=== PATIENT | male | born 1930 | race Caucasian/White ===

== ENCOUNTER → 2016-12-29 | Outpatient (CLI) | payer MEDICARE ==
[2016-12-29 13:34] LABS: Blood Urea Nitrogen 26 mg/dL (9-20); Non-African American GFR(MDRD) >60 (>60 ml/min/1.73 sqM)
--- NOTE | 2016-12-29 14:56 | CT ---
EXAMINATION TYPE: CT brain wo/w con, CT orbits wo/w con DATE OF EXAM: 12/29/2016 2:36 PM COMPARISON: CT brain June 03, 2016. HISTORY: Suspected mass of right eye CT DLP: 2113.47 (accession [id number]), 474.78 (accession [id number]) mGycm Automated exposure control for dose reduction was used. CONTRAST: CT scan of the head and orbits are performed without and with IV Contrast, patient injected with 100 mL of Omnipaque 300. FINDINGS: Noncontrast images show no acute intracranial hemorrhage or midline shift. There is ventricular and s ulcal prominence consistent with diffuse cerebral atrophy. Some low-attenuation in the periventricula r white matter is redemonstrated. Postcontrast images show no suspicious enhancing intraparenchymal m ass. Pituitary gland appears unremarkable in the S[place] tur[place] on CT. No suspicious suprasellar masses are seen. Visualized paranasal sinuses are clear. The globes are intact bilaterally. Both lenses are thinned . Intraconal fat is preserved. Rectus muscles are symmetric and felt within normal limits. There is no suspicious solid or cystic mass or enhancing fluid collection identified. Optic chiasm appears not ef faced. IMPRESSION: No suspicious finding is seen to account for patient's symptoms.
== END | disposition home or self-care (01) ==
LOC: RADCTMAIN 12:44
PROVIDERS: ATTEND Ophthalmology
DX: H57.8 Other specified disorders of eye and adnexa (principal)
CPT/HCPCS: 82565; 84520; 70470; 70482; 36415; Q9967

== ENCOUNTER → 2017-01-25 | Outpatient (CLI) | payer MEDICARE ==
[2017-01-25 17:57] LABS: CH 29.8; CHCM 33.5; HCT 41.9 % (39.0-53.0); HDW 2.56; HGB 13.9 gm/dL (13.0-17.5); MCH 29.7 pg (25.0-35.0); MCHC 33.3 g/dL (31.0-37.0); MCV 89.3 fL (80.0-100.0); Mean Platelet Volume 7.2; RBC 4.69 m/uL (4.30-5.90); RDW 13.4 % (11.5-15.5)
[2017-01-25 18:49] LABS: Erythrocyte Sedimentation Rate 36 mm/hr (0-15)
== END | disposition home or self-care (01) ==
LOC: LABWHC1 17:18
PROVIDERS: ATTEND Ophthalmology
DX: H47.20 Unspecified optic atrophy (principal)
CPT/HCPCS: 36415; 85027; 85652; 86140

== ENCOUNTER 2017-03-19 16:32 | Inpatient (IN) | payer MEDICARE ==
--- NOTE | 2017-03-19 17:23 | ED ---
General Adult HPI - General Chief complaint: Neuro Symptoms/Deficit Stated complaint: Fall/Weakness/Dizziness Time Seen by Provider: 03/19/17 16:43 Source: patient Mode of arrival: wheelchair Limitations: no limitations - History of Present Illness Initial comments: She is an 86-year-old male who lives independently. He is brought to the emergency department today by his son for evaluation of generalized weakness. Son reports that he has noticed over the past week his father appears to have weakness in his left leg, he states that sometimes it looks like his father wails his ankle and is unable to walk on the leg. He reports that he feels his father does not have good control over his legs. He has had symptoms similar to this when he has had a urinary tract infection the past. The patient's primary care provider who evaluated the patient and was concerned he may have right sided weakness, they performed a urinalysis which revealed no acute urinary infection and therefore decided to send him to the emergency department for further evaluation of this weakness. Patient reports he feels generally weak and run down, he describes himself as feeling "is weak as a kitten." - Related Data Home Medications Medication Instructions Recorded Confirmed Aspirin [Adult Low Dose Aspirin EC] 81 mg PO HS 08/20/15 03/19/17 Docusate [Colace] 100 mg PO TID PRN 08/20/15 03/19/17 Glimepiride [Amaryl] 2 mg PO BID 08/20/15 03/19/17 Imipramine Pamoate [Tofranil Pm] 75 mg PO HS 08/20/15 03/19/17 Metoprolol Tartrate [Lopressor] 100 mg PO BID 08/20/15 03/19/17 Vits A,C,E/Lutein/Minerals 1 tab PO DAILY 08/20/15 03/19/17 [Ocuvite with Lutein Tablet] metFORMIN HCL [Glucophage] 500 mg PO BID 08/20/15 03/19/17 Cholecalciferol (Vitamin D3) 2,000 unit PO DAILY 03/19/17 03/19/17 [Vitamin D3] Empagliflozin [Jardiance] 10 mg PO DAILY 03/19/17 03/19/17 Furosemide [Lasix] 20 mg PO DAILY 03/19/17 03/19/17 Multivitamins, Thera [Multivitamin 1 tab PO DAILY 03/19/17 03/19/17 (formulary)] Ramipril [Altace] 5 mg PO BID 03/19/17 03/19/17 Allergies Allergy/AdvReac Type Severity Reaction Status Date / Time No Known Allergies Allergy Verified 03/19/17 16:33 Review of Systems ROS Statement: Those systems with pertinent positive or pertinent negative responses have been documented in the HPI. ROS Other: All systems not noted in ROS Statement are negative. Constitutional: Reports: weakness. Denies: fever, chills Eyes: Denies: vision change ENT: Reports: other (Chronic hearing loss) Respiratory: Denies: cough, dyspnea, wheezes Cardiovascular: Denies: chest pain, dyspnea on exertion Endocrine: Reports: fatigue Gastrointestinal: Denies: abdominal pain, nausea, vomiting Genitourinary: Denies: dysuria Musculoskeletal: Denies: back pain Neurological: Reports: weakness (generalized). Denies: headache Psychiatric: Reports: depression (Reports he is feeling old) Hematological/Lymphatic: Reports: easy bruising. Denies: easy bleeding Past Medical History Past Medical History: Cancer, Diabetes Mellitus, GERD/Reflux, Hyperlipidemia, Skin Disorder Additional Past Medical History / Comment(s): see Dr Brandt H&P, constipation, hx skin cancer, inner ear problem-occ lighthead History of Any Multi-Drug Resistant Organisms: None Reported Past Surgical History: Heart Catheterization, Pacemaker, Prostate Surgery Additional Past Surgical History / Comment(s): surgery for detached retina-rt eye, Past Anesthesia/Blood Transfusion Reactions: Motion Sickness Type of Cardiac Device: Permanent Pacemaker Device Placement Date:: about 2007 Past Psychological History: No Psychological Hx Reported Smoking Status: Former smoker Past Alcohol Use History: None Reported Past Drug Use History: None Reported - Past Family History Sister(s) Family Medical History: Cancer General Exam Limitations: no limitations General appearance: alert, in no apparent distress Head exam: Present: atraumatic, normocephalic Eye exam: Present: PERRL ENT exam: Present: mucous membranes moist Neck exam: Absent: meningismus Respiratory exam: Present: normal lung sounds bilaterally. Absent: respiratory distress Cardiovascular Exam: Present: regular rate GI/Abdominal exam: Present: soft, normal bowel sounds. Absent: distended, tenderness, guarding, rebound Rectal exam: Present: deferred exam: Present: normal inspection Extremities exam: Absent: pedal edema, calf tenderness Back exam: Present: normal inspection Neurological exam: Present: alert, oriented X3, abnormal gait (Patient with generalized weakness, no lateralizing weakness, requires assistance in walking) Psychiatric exam: Present: normal affect Skin exam: Present: warm, dry Course Vital Signs 03/19/17 03/19/17 16:33 18:17 Temperature 96.4 F L 98.8 F Pulse Rate 78 73 Respiratory 16 18 Rate Blood Pressure 148/71 157/75 O2 Sat by Pulse 99 94 L Oximetry - Reevaluation(s) Reevaluation #1: Patient reevaluated, his family has brought him a meal from [employer] and he is sitting up in bed comfortably and eating 03/19/17 Reevaluation #2: Results and plan for admission were discussed with the patient and family 03/19/17 20:10 Medical Decision Making - Medical Decision Making Patient was seen and evaluated history was obtained from the patient, as well as his son at bedside Labs and CT imaging were ordered Labs reveal mild elevation of blood glucose at 240 and mild hyponatremia with a sodium level of 127 the corrected sodium is only 129 IV fluids were ordered Results were discussed with the patient as well as his family at bedside, family is concerned that the patient has missed his dinner, they would like to bring him in a meal here and advised him that he can at this time. CT head with no acute findings Patient care was discussed with Bird, the mid-level provider for the [facility] who accepts the admission for hyponatremia and generalized weakness Admission orders were placed - Lab Data Result diagrams: 03/19/17 17:30 03/19/17 17:30 Lab Results 03/19/17 03/19/17 03/19/17 Range/Units 17:30 17:30 17:30 WBC 10.6 (3.8-10.6) k/uL RBC 4.45 (4.30-5.90) m/uL Hgb 13.1 (13.0-17.5) gm/dL Hct 37.7 L (39.0-53.0) % MCV 84.6 (80.0-100.0) fL MCH 29.4 (25.0-35.0) pg MCHC 34.7 (31.0-37.0) g/dL RDW 13.6 (11.5-15.5) % Plt Count 394 (150-450) k/uL Neutrophils % 75 % Lymphocytes % 15 % Monocytes % 7 % Eosinophils % 1 % Basophils % 0 % Neutrophils # 7.9 H (1.3-7.7) k/uL Lymphocytes # 1.6 (1.0-4.8) k/uL Monocytes # 0.7 (0-1.0) k/uL Eosinophils # 0.1 (0-0.7) k/uL Basophils # 0.0 (0-0.2) k/uL PT (9.0-12.0) sec INR (<1.2) APTT (22.0-30.0) sec Sodium 127 L (137-145) mmol/L Potassium 4.9 (3.5-5.1) mmol/L Chloride 93 L (98-107) mmol/L Carbon Dioxide 25 (22-30) mmol/L Anion Gap 9 mmol/L BUN 32 H (9-20) mg/dL Creatinine 0.90 (0.66-1.25) mg/dL Est GFR (MDRD) Af Amer >60 (>60 ml/min/1.73 sqM) Est GFR (MDRD) Non-Af >60 (>60 ml/min/1.73 sqM) Glucose 240 H (74-99) mg/dL Calcium 9.4 (8.4-10.2) mg/dL Total Bilirubin 0.3 (0.2-1.3) mg/dL AST 25 (17-59) U/L ALT 31 (21-72) U/L Alkaline Phosphatase 119 (38-126) U/L Troponin I (0.000-0.034) ng/mL NT-Pro-B Natriuret Pep 1350 pg/mL Total Protein 6.1 L (6.3-8.2) g/dL Albumin 3.2 L (3.5-5.0) g/dL Urine Color Urine Appearance (Clear) Urine pH (5.0-8.0) Ur Specific [place] (1.001-1.035) Urine Protein (Negative) Urine Glucose (UA) (Negative) Urine Ketones (Negative) Urine Blood (Negative) Urine Nitrite (Negative) Urine Bilirubin (Negative) Urine Urobilinogen (<2.0) mg/dL Ur Leukocyte Esterase (Negative) 07/03/19/17 03/19/17 Range/Units 17:30 17:30 17:55 WBC (3.8-10.6) k/uL RBC (4.30-5.90) m/uL Hgb (13.0-17.5) gm/dL Hct (39.0-53.0) % MCV (80.0-100.0) fL MCH (25.0-35.0) pg MCHC (31.0-37.0) g/dL RDW (11.5-15.5) % Plt Count (150-450) k/uL Neutrophils % % Lymphocytes % % Monocytes % % Eosinophils % % Basophils % % Neutrophils # (1.3-7.7) k/uL Lymphocytes # (1.0-4.8) k/uL Monocytes # (0-1.0) k/uL Eosinophils # (0-0.7) k/uL Basophils # (0-0.2) k/uL PT 10.3 (9.0-12.0) sec INR 1.0 (<1.2) APTT 23.2 (22.0-30.0) sec Sodium (137-145) mmol/L Potassium (3.5-5.1) mmol/L Chloride (98-107) mmol/L Carbon Dioxide (22-30) mmol/L Anion Gap mmol/L BUN (9-20) mg/dL Creatinine (0.66-1.25) mg/dL Est GFR (MDRD) Af Amer (>60 ml/min/1.73 sqM) Est GFR (MDRD) Non-Af (>60 ml/min/1.73 sqM) Glucose (74-99) mg/dL Calcium (8.4-10.2) mg/dL Total Bilirubin (0.2-1.3) mg/dL AST (17-59) U/L ALT (21-72) U/L Alkaline Phosphatase (38-126) U/L Troponin I <0.012 (0.000-0.034) ng/mL NT-Pro-B Natriuret Pep pg/mL Total Protein (6.3-8.2) g/dL Albumin (3.5-5.0) g/dL Urine Color Light Yellow Urine Appearance Clear (Clear) Urine pH 6.5 (5.0-8.0) Ur Specific [place] 1.016 (1.001-1.035) Urine Protein Negative (Negative) Urine Glucose (UA) 4+ H (Negative) Urine Ketones Negative (Negative) Urine Blood Negative (Negative) Urine Nitrite Negative (Negative) Urine Bilirubin Negative (Negative) Urine Urobilinogen <2.0 (<2.0) mg/dL Ur Leukocyte Esterase Negative (Negative) Disposition Clinical Impression: Hyponatremia Disposition: ADMITTED IP TO THIS HOSP Condition: Good Referrals: Sung Ludwig MD [Primary Care Provider] - 1-2 days
[2017-03-19 17:42] LABS: Basophils % (A) 0 %; CH 29.1; CHCM 34.5; Eosinophils # (A) 0.1 k/uL (0-0.7); Eosinophils % (A) 1 %; HCT 37.7 % (39.0-53.0); HDW 2.46; HGB 13.1 gm/dL (13.0-17.5); Luc # (Auto) 0.31; Luc % (Auto) 3; Lymphocytes # (A) 1.6 k/uL (1.0-4.8); Lymphocytes % (A) 15 %; MCH 29.4 pg (25.0-35.0); MCHC 34.7 g/dL (31.0-37.0); MCV 84.6 fL (80.0-100.0); Mean Platelet Volume 7.2; Monocytes # (A) 0.7 k/uL (0-1.0); Monocytes % (A) 7 %; Neutrophils # (A) 7.9 k/uL (1.3-7.7); Neutrophils % (A) 75 %; RBC 4.45 m/uL (4.30-5.90); RDW 13.6 % (11.5-15.5); WBC 10.6 k/uL (3.8-10.6); WBC (Perox) 10.17
[2017-03-19 17:51] LABS: Partial Thromboplastin Time 23.2 sec (22.0-30.0); Prothrombin Time 10.3 sec (9.0-12.0)
[2017-03-19 18:03] LABS: Appearance,Urine Clear (Clear); Bilirubin,Urine Negative (Negative); Glucose,Urine (UA) 4+ (Negative); Ketones,Urine Negative (Negative); Leukocyte Esterase,Urine Negative (Negative); Nitrite,Urine Negative (Negative); PH, Urine 6.5 (5.0-8.0); Protein,Urine Negative (Negative); Specific Gravity,Urine 1.016 (1.001-1.035); UA Billing (MACRO vs. MICRO) CHEM; Urobilinogen,Urine <2.0 mg/dL (<2.0)
[2017-03-19 18:11] LABS: AST 25 U/L (17-59); Anion Gap 9 mmol/L; Blood Urea Nitrogen 32 mg/dL (9-20); Calcium 9.4 mg/dL (8.4-10.2); Carbon Dioxide 25 mmol/L (22-30); Chloride 93 mmol/L (98-107); Glucose 240 mg/dL (74-99); Non-African American GFR(MDRD) >60 (>60 ml/min/1.73 sqM); Potassium 4.9 mmol/L (3.5-5.1); Sodium 127 mmol/L (137-145); Total Bilirubin 0.3 mg/dL (0.2-1.3); Total Protein 6.1 g/dL (6.3-8.2)
[2017-03-19 18:12] LABS: ALT 31 U/L (21-72); Alkaline Phosphatase 119 U/L (38-126)
--- NOTE | 2017-03-19 19:44 | CT ---
EXAMINATION TYPE: CT brain wo con DATE OF EXAM: 03/19/2017 COMPARISON: 12/29/2016 HISTORY: Patient complains of headache, syncope, dizziness, and weakness. CT DLP: 1079 mGycm Automated exposure control for dose reduction was used. FINDINGS: There is no skull fracture or hemorrhage. No mass or mass effect. No definite new attenuation defect. The paranasal sinuses are clear. The mastoid sinuses and middle ear cavities are also clear. IMPRESSION: NO ACUTE PROCESS.
[2017-03-19] MEDS ORDERED: NALOXONE 0.4 MG/ML 1 ML VIAL IV PRN (20:11)
[2017-03-19] MEDS: SODIUM CHLORIDE 0.9% 1,000 ML IV SCH (20:42)
[2017-03-19 23:09] VITALS: BMI 19.3
[2017-03-20 03:14] LABS: Glucose,Whole Blood 184 mg/dL (75-99)
[2017-03-20] MEDS: SODIUM CHLORIDE 0.9% 1,000 ML IV SCH ×2 (05:44→15:58)
[2017-03-20 07:50] LABS: Glucose,Whole Blood 134 mg/dL (75-99)
[2017-03-20] MEDS ORDERED: DOCUSATE 100 MG CAP PO PRN (12:09)
[2017-03-20 12:15] LABS: Glucose,Whole Blood 307 mg/dL (75-99)
[2017-03-20] MEDS ORDERED: INSULIN LISPRO (humaLOG) 300 UNIT/3 ML VIAL SQ ONE (12:47)
[2017-03-20] MEDS: LISINOPRIL 20 MG TAB PO SCH ×2 (13:05→21:53)
[2017-03-20] MEDS: METOPROLOL TARTRATE 50 MG TAB PO SCH ×2 (13:05→21:54)
[2017-03-20] MEDS: CHOLECALCIFEROL 1,000 UNIT TAB PO SCH (15:58)
[2017-03-20] MEDS: MULTIVITAMINS, THERA 1 EACH TAB PO SCH (15:58)
[2017-03-20] MEDS: VIT A,C & E-LUTEIN-MINERALS 1 EACH TAB PO SCH (15:58)
[2017-03-20] MEDS: metFORMIN 500 MG TAB PO SCH (16:56)
[2017-03-20 17:53] LABS: Glucose,Whole Blood 143 mg/dL (75-99)
[2017-03-20 20:41] LABS: Glucose,Whole Blood 248 mg/dL (75-99)
[2017-03-20 20:58] LABS: CH 28.8; CHCM 32.5; HCT 40.9 % (39.0-53.0); HGB 13.6 gm/dL (13.0-17.5); MCH 29.6 pg (25.0-35.0); MCHC 33.3 g/dL (31.0-37.0); MCV 88.9 fL (80.0-100.0); Mean Platelet Volume 7.1; RDW 13.7 % (11.5-15.5); WBC 13.2 k/uL (3.8-10.6)
[2017-03-20] MEDS ORDERED: LISINOPRIL 20 MG TAB PO SCH (21:00)
[2017-03-20] MEDS ORDERED: METOPROLOL TARTRATE 50 MG TAB PO SCH (21:00)
[2017-03-20 21:33] LABS: Anion Gap 9 mmol/L; Blood Urea Nitrogen 21 mg/dL (9-20); Calcium 8.7 mg/dL (8.4-10.2); Carbon Dioxide 23 mmol/L (22-30); Chloride 95 mmol/L (98-107); Glucose 213 mg/dL (74-99); Non-African American GFR(MDRD) >60 (>60 ml/min/1.73 sqM); Potassium 4.7 mmol/L (3.5-5.1); Sodium 127 mmol/L (137-145)
[2017-03-20] MEDS: IMIPRAMINE 25 MG TAB PO SCH (21:53)
[2017-03-20] MEDS: GLIMEPIRIDE 2 MG TAB PO SCH (21:53)
[2017-03-20] MEDS: ASPIRIN 81 MG CHEW PO SCH (21:53)
[2017-03-21] MEDS: SODIUM CHLORIDE 0.9% 1,000 ML IV SCH ×2 (03:07→12:23)
[2017-03-21 07:54] LABS: Glucose,Whole Blood 105 mg/dL (75-99)
[2017-03-21] MEDS: JARDIANCE 10 MG PO SCH (08:13)
[2017-03-21] MEDS: LISINOPRIL 20 MG TAB PO SCH ×2 (08:13→20:18)
[2017-03-21] MEDS: METOPROLOL TARTRATE 50 MG TAB PO SCH ×2 (08:13→20:17)
[2017-03-21] MEDS: metFORMIN 500 MG TAB PO SCH ×2 (08:14→17:30)
[2017-03-21] MEDS: GLIMEPIRIDE 2 MG TAB PO SCH ×2 (08:14→20:17)
[2017-03-21] MEDS ORDERED: NON-FORMULARY DRUG (Empagliflozin [Jardiance] 10 MG) PO SCH (09:00)
[2017-03-21 09:52] LABS: Anion Gap 7 mmol/L; Blood Urea Nitrogen 16 mg/dL (9-20); Calcium 8.2 mg/dL (8.4-10.2); Carbon Dioxide 25 mmol/L (22-30); Chloride 95 mmol/L (98-107); Glucose 182 mg/dL (74-99); Non-African American GFR(MDRD) >60 (>60 ml/min/1.73 sqM); Potassium 3.7 mmol/L (3.5-5.1); Sodium 127 mmol/L (137-145)
[2017-03-21 10:10] LABS: Basophils % (A) 0 %; CHCM 33.6; Eosinophils # (A) 0.1 k/uL (0-0.7); Eosinophils % (A) 1 %; HCT 39.7 % (39.0-53.0); HDW 2.52; HGB 13.3 gm/dL (13.0-17.5); Luc # (Auto) 0.28; Luc % (Auto) 3; Lymphocytes # (A) 1.4 k/uL (1.0-4.8); Lymphocytes % (A) 13 %; MCH 29.2 pg (25.0-35.0); MCHC 33.6 g/dL (31.0-37.0); MCV 86.8 fL (80.0-100.0); Mean Platelet Volume 7.3; Monocytes # (A) 0.7 k/uL (0-1.0); Monocytes % (A) 7 %; Neutrophils # (A) 8.2 k/uL (1.3-7.7); Neutrophils % (A) 76 %; RBC 4.57 m/uL (4.30-5.90); RDW 13.6 % (11.5-15.5); WBC 10.8 k/uL (3.8-10.6); WBC (Perox) 11.14
[2017-03-21] MEDS ORDERED: MULTIVITAMINS, THERA 1 EACH TAB PO SCH (12:00)
[2017-03-21] MEDS ORDERED: VIT A,C & E-LUTEIN-MINERALS 1 EACH TAB PO SCH (12:00)
[2017-03-21] MEDS ORDERED: CHOLECALCIFEROL 1,000 UNIT TAB PO SCH (12:00)
[2017-03-21 12:11] LABS: Glucose,Whole Blood 254 mg/dL (75-99)
[2017-03-21] MEDS: MULTIVITAMINS, THERA 1 EACH TAB PO SCH (12:23)
[2017-03-21] MEDS: CHOLECALCIFEROL 1,000 UNIT TAB PO SCH (12:23)
[2017-03-21] MEDS: VIT A,C & E-LUTEIN-MINERALS 1 EACH TAB PO SCH (12:24)
--- NOTE | 2017-03-21 15:49 | P.HPIM ---
History of Present Illness H&P Date: 03/20/17 Chief Complaint: Generalized weakness Mr. Multani is an 86-year-old male with a past medical history of diabetes mellitus GERD and hyperlipidemia skin cancer admitted to the hospital for evaluation of generalized weakness. Patient lives independently and his son takes care of him. Patient states that he has been feeling weak and was unable to get out of the bed for the past week and so his son was worried about him so took him to his PCP. The patient mentions that they did blood work for him and later was started to get admitted to the hospital for further evaluation. Patient is a poor historian. As per the ED notes he was evaluated by his PCP and was concerned that he might have right-sided weakness, they performed a UA which did not reveal any UTI and so decided to send him to the emergency department for further evaluation. Patient mentions that he lost almost 35 pounds in the past 3 years. He states his appetite has been okay. Patient denies having any UTI symptoms. He denies having any cough fever chills or rigors. No chest pain or difficulty in breathing, no palpitations. No nausea or vomiting or diarrhea or constipation. He only complains of generalized weakness. No focal weakness. No headaches blurring of vision ENT symptoms. Denies having any loss of consciousness or syncopal episodes. Patient states that he is not able to get out of the bed due to weakness and all his 4 limbs but no focal weakness. Patient did get his CAT scan of his brain in the ED that that was within normal limits. But his labs were significant hyponatremia with sodium of 127. He was started on IV fluids normal saline at 100 mL per hour and admitted. Review of Systems REVIEW OF SYSTEMS: PSYCH: Normal psychiatric exam NEURO:c/o weakness of the extremties, No facial droop, No speech abnormalities. VASCULAR: Peripheral nervous system within the normal limits no edema HEMATOLOGIC: No history of easy bleeding and bruising . No recent infections . RESPIRATORY: No cough, No SOB, No chest discomfort. IMMUNE: No infections INTEGUMENT: no rashes OPHTHALMOLOGIC: No blurry vision and no eye discharge : No dysuria or hematuria CARDIAC: No chest pain , shortness of breath , paroxysmal nocturnal dyspnea MUSCULOSKELETAL : No Aches or pains in the joints or muscles. GI: No abdominal pain, Nausea or vomiting. No constipation or diarrhea. Addendum review of systems are done and negative except for the ones mentioned above Past Medical History Past Medical History: Cancer, Diabetes Mellitus, GERD/Reflux, Hyperlipidemia, Skin Disorder Additional Past Medical History / Comment(s): see Dr Brandt H&P, constipation, hx skin cancer, inner ear problem-occ lighthead History of Any Multi-Drug Resistant Organisms: None Reported Past Surgical History: Heart Catheterization, Pacemaker, Prostate Surgery Additional Past Surgical History / Comment(s): surgery for detached retina-rt eye, Past Anesthesia/Blood Transfusion Reactions: Motion Sickness Type of Cardiac Device: Permanent Pacemaker Device Placement Date:: about 2007 Past Psychological History: No Psychological Hx Reported Smoking Status: Former smoker Past Alcohol Use History: None Reported Past Drug Use History: None Reported - Past Family History Sister(s) Family Medical History: Cancer Medications and Allergies Home Medications Medication Instructions Recorded Confirmed Type Aspirin [Adult Low Dose Aspirin EC] 81 mg PO HS 08/20/15 03/19/17 History Docusate [Colace] 100 mg PO TID PRN 08/20/15 03/19/17 History Glimepiride [Amaryl] 2 mg PO BID 08/20/15 03/19/17 History Imipramine Pamoate [Tofranil Pm] 75 mg PO HS 08/20/15 03/19/17 History Metoprolol Tartrate [Lopressor] 100 mg PO BID 08/20/15 03/19/17 History Vits A,C,E/Lutein/Minerals 1 tab PO DAILY 08/20/15 03/19/17 History [Ocuvite with Lutein Tablet] metFORMIN HCL [Glucophage] 500 mg PO BID 08/20/15 03/19/17 History Cholecalciferol (Vitamin D3) 2,000 unit PO DAILY 03/19/17 03/19/17 History [Vitamin D3] Empagliflozin [Jardiance] 10 mg PO DAILY 03/19/17 03/19/17 History Furosemide [Lasix] 20 mg PO DAILY 03/19/17 03/19/17 History Multivitamins, Thera [Multivitamin 1 tab PO DAILY 03/19/17 03/19/17 History (formulary)] Ramipril [Altace] 5 mg PO BID 03/19/17 03/19/17 History Allergies Allergy/AdvReac Type Severity Reaction Status Date / Time No Known Allergies Allergy Verified 03/19/17 16:33 Physical Exam Vitals: Vital Signs Temp Pulse Pulse Resp BP BP Pulse Ox 03/20/17 07:00 97.6 F 74 16 157/72 96 03/20/17 00:00 87 16 03/19/17 23:40 98.4 F 87 16 144/79 96 03/19/17 20:00 70 20 144/79 98 03/19/17 18:17 98.8 F 73 18 157/75 94 L 03/19/17 16:33 96.4 F L 78 16 148/71 99 Intake and Output 03/19/17 03/20/17 03/20/17 22:59 06:59 14:59 Intake Total 667 Output Total 800 Balance -133 Intake: Intake, IV Titration 667 Amount Sodium Chloride 0.9% 1, 667 000 ml @ 100 mls/hr IV . Q10H [facility] Rx#:[id number] Output: Urine 800 Other: Voiding Method Urinal Weight 51.256 kg 51.256 kg Patient Weight 03/21/17 06:59 Weight 51.256 kg GENERAL EXAM GEN. APPEARANCE: alert, in no apparent distress HEAD EXAM: atraumatic, normocephalic, normal inspection EYE EXAM: Patient is blind in the right eye ENT EXAM: normal exam, mucous membranes moist NECK EXAM: normal inspection. Absent: tenderness, meningismus, full ROM, lymphadenopathy RESPIRATORY EXAM: Decreased Sounds in all lung nielsen CARDIOVASCULAR EXAM: regular rate, normal rhythm, normal heart sounds. GI/ABDOMINAL EXAM: soft, normal bowel sounds. Absent: distended, tenderness, guarding, rebound, rigid EXTREMITIES EXAM: Patient has generalized weakness and was not able to sit up in the bed. But no focal deficits appreciated. No clubbing cyanosis and no edema NEUROLOGICAL EXAM: alert, oriented X 2 - 3 , no focal deficits PSYCHIATRIC EXAM: normal affect, normal mood SKIN EXAM: warm, dry, intact, normal color. Absent: rash Results CBC & Chem 7: 03/19/17 17:30 03/19/17 17:30 Labs: Abnormal Lab Results - Last 24 Hours (Table) 03/19/17 03/19/17 03/19/17 Range/Units 17:30 17:30 17:55 Hct 37.7 L (39.0-53.0) % Neutrophils # 7.9 H (1.3-7.7) k/uL Sodium 127 L (137-145) mmol/L Chloride 93 L (98-107) mmol/L BUN 32 H (9-20) mg/dL Glucose 240 H (74-99) mg/dL POC Glucose (mg/dL) (75-99) mg/dL Total Protein 6.1 L (6.3-8.2) g/dL Albumin 3.2 L (3.5-5.0) g/dL Urine Glucose (UA) 4+ H (Negative) 03/20/17 03/20/17 03/20/17 Range/Units 03:12 07:45 12:07 Hct (39.0-53.0) % Neutrophils # (1.3-7.7) k/uL Sodium (137-145) mmol/L Chloride (98-107) mmol/L BUN (9-20) mg/dL Glucose (74-99) mg/dL POC Glucose (mg/dL) 184 H 134 H 307 H (75-99) mg/dL Total Protein (6.3-8.2) g/dL Albumin (3.5-5.0) g/dL Urine Glucose (UA) (Negative) CT Scan - head: report reviewed (No acute process) Thrombosis Risk Factor Assmnt - Choose All That Apply Any of the Below Risk Factors Present?: Yes Each Risk Factor Represents 3 Points: Age 75 years or older Other congenital or acquired thrombophilia - If yes, enter type in comment: No Thrombosis Risk Factor Assessment Total Risk Factor Score: 3 Thrombosis Risk Factor Assessment Level: Moderate Risk Assessment and Plan Plan: ASSESSMENT Generalized weakness most likely secondary to hyponatremia Hyponatremia - most likely hypovolemic hyponatremia Type 2 diabetes mellitus GERD History of skin cancer Hyperlipidemia 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 We will have PT OT on board. We will resume his home medications. Further recommendations to follow depending on the progress of the patient. Overall prognosis guarded.
--- NOTE | 2017-03-21 15:57 | P.PN ---
Subjective Principal diagnosis: Hyponatremia Mr. Multani is an 86-year-old male with a past medical history of diabetes mellitus GERD and hyperlipidemia skin cancer admitted to the hospital for evaluation of generalized weakness. Patient lives independently and his son takes care of him. Patient states that he has been feeling weak and was unable to get out of the bed for the past week and so his son was worried about him so took him to his PCP. The patient mentions that they did blood work for him and later was started to get admitted to the hospital for further evaluation. Patient is a poor historian. As per the ED notes he was evaluated by his PCP and was concerned that he might have right-sided weakness, they performed a UA which did not reveal any UTI and so decided to send him to the emergency department for further evaluation. Patient mentions that he lost almost 35 pounds in the past 3 years. He states his appetite has been okay. Patient denies having any UTI symptoms. He denies having any cough fever chills or rigors. No chest pain or difficulty in breathing, no palpitations. No nausea or vomiting or diarrhea or constipation. He only complains of generalized weakness. No focal weakness. No headaches blurring of vision ENT symptoms. Denies having any loss of consciousness or syncopal episodes. Patient states that he is not able to get out of the bed due to weakness and all his 4 limbs but no focal weakness. Patient did get his CAT scan of his brain in the ED that that was within normal limits. But his labs were significant hyponatremia with sodium of 127. He was started on IV fluids normal saline at 100 mL per hour and admitted. On 03/21/2017- as per the nursing staff report no overnight active issues . Patient has no active complaints. He is comfortably lying in bed appears to be no acute distress. Patient complains of generalized weakness REVIEW OF SYSTEMS CARDIAC - no chest pain or palpitations RESPIRATORY- no difficulty in breathing GI - abdominal pain nausea vomiting or diarrhea - no dysuria or hematuria Objective - Vital Signs Vital signs: Vital Signs Temp 97.8 F 03/21/17 07:00 Pulse 76 03/21/17 08:00 Resp 16 03/21/17 08:00 BP 141/68 03/21/17 07:00 Pulse Ox 97 03/21/17 07:00 Intake & Output 03/20/17 03/21/17 03/21/17 18:59 06:59 18:59 Intake Total 1220 1200 120 Output Total 1300 1400 600 Balance -80 -200 -480 Weight 51.256 kg Intake: Intake, IV Titration 800 800 Amount Sodium Chloride 0.9% 1, 800 800 000 ml @ 100 mls/hr IV . Q10H [facility] Rx#:[id number] Oral 420 400 120 Output: Urine 1300 1400 600 Other: Voiding Method Urinal Urinal Urinal # Voids 3 # Bowel Movements 1 - Exam GENERAL EXAM GEN. APPEARANCE: Thin built HEAD EXAM: atraumatic, normocephalic, normal inspection EYE EXAM: normal appearance, PERRL, EOMI. Absent: scleral icterus, conjunctival injection, periorbital swelling ENT EXAM: normal exam, mucous membranes moist NECK EXAM: normal inspection. Absent: tenderness, meningismus, full ROM, lymphadenopathy RESPIRATORY EXAM: normal lung sounds bilaterally. Absent: respiratory distress , wheezes, rales, rhonchi, stridor CARDIOVASCULAR EXAM: regular rate, normal rhythm, normal heart sounds. Absent : systolic murmur, diastolic murmur, rubs, gallop, clicks GI/ABDOMINAL EXAM: soft, normal bowel sounds. Absent: distended, tenderness, guarding, rebound, rigid EXTREMITIES EXAM: normal inspection, full ROM, normal capillary refill. Absent : tenderness, pedal edema, joint swelling, calf tenderness NEUROLOGICAL EXAM: alert, oriented X3, CN II-XII intact, motor sensory deficit PSYCHIATRIC EXAM: normal affect, normal mood SKIN EXAM: warm, dry, intact, normal color. Absent: rash - Labs CBC & Chem 7: 03/21/17 08:49 03/21/17 08:49 Labs: Abnormal Lab Results - Last 24 Hours (Table) 03/20/17 03/20/17 03/20/17 Range/Units 17:49 20:40 20:42 WBC 13.2 H (3.8-10.6) k/uL Neutrophils # (1.3-7.7) k/uL Sodium (137-145) mmol/L Chloride (98-107) mmol/L BUN (9-20) mg/dL Glucose (74-99) mg/dL POC Glucose (mg/dL) 143 H 248 H (75-99) mg/dL Osmolality (280-301) mosm/kg Calcium (8.4-10.2) mg/dL 03/20/17 03/21/17 03/21/17 Range/Units 20:42 07:30 08:49 WBC 10.8 H (3.8-10.6) k/uL Neutrophils # 8.2 H (1.3-7.7) k/uL Sodium 127 L (137-145) mmol/L Chloride 95 L (98-107) mmol/L BUN 21 H (9-20) mg/dL Glucose 213 H (74-99) mg/dL POC Glucose (mg/dL) 105 H (75-99) mg/dL Osmolality (280-301) mosm/kg Calcium (8.4-10.2) mg/dL 03/21/17 03/21/17 03/21/17 Range/Units 08:49 08:49 12:07 WBC (3.8-10.6) k/uL Neutrophils # (1.3-7.7) k/uL Sodium 127 L (137-145) mmol/L Chloride 95 L (98-107) mmol/L BUN (9-20) mg/dL Glucose 182 H (74-99) mg/dL POC Glucose (mg/dL) 254 H (75-99) mg/dL Osmolality 270 L (280-301) mosm/kg Calcium 8.2 L (8.4-10.2) mg/dL 03/21/17 Range/Units 14:53 WBC (3.8-10.6) k/uL Neutrophils # (1.3-7.7) k/uL Sodium (137-145) mmol/L Chloride (98-107) mmol/L BUN (9-20) mg/dL Glucose (74-99) mg/dL POC Glucose (mg/dL) (75-99) mg/dL Osmolality 277 L (280-301) mosm/kg Calcium (8.4-10.2) mg/dL Assessment and Plan Plan: ASSESSMENT Generalized weakness most likely secondary to hyponatremia Hyponatremia - most likely hypovolemic hyponatremia Type 2 diabetes mellitus GERD History of skin cancer Hyperlipidemia 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 But patient's sodium has still remained the same and 127, so will consult nephrology We will have PT OT on board. Continue with the rest of his medication regimen . Further recommendations to follow depending on the progress of the patient. Overall prognosis guarded.
[2017-03-21 16:57] LABS: Glucose,Whole Blood 148 mg/dL (75-99)
[2017-03-21] MEDS: INSULIN LISPRO (humaLOG) 300 UNIT/3 ML VIAL SQ SCH ×2 (17:29→20:16)
[2017-03-21 20:04] LABS: Glucose,Whole Blood 236 mg/dL (75-99)
[2017-03-21] MEDS: IMIPRAMINE 25 MG TAB PO SCH (20:17)
[2017-03-21] MEDS: ASPIRIN 81 MG CHEW PO SCH (20:17)
[2017-03-22 07:24] LABS: Glucose,Whole Blood 139 mg/dL (75-99)
[2017-03-22 07:27] LABS: Basophils % (A) 0 %; CH 29.5; CHCM 34.4; Eosinophils # (A) 0.1 k/uL (0-0.7); Eosinophils % (A) 1 %; HCT 40.7 % (39.0-53.0); HDW 2.46; HGB 13.9 gm/dL (13.0-17.5); Luc # (Auto) 0.37; Luc % (Auto) 3; Lymphocytes # (A) 1.9 k/uL (1.0-4.8); Lymphocytes % (A) 15 %; MCH 29.5 pg (25.0-35.0); MCHC 34.2 g/dL (31.0-37.0); MCV 86.3 fL (80.0-100.0); Mean Platelet Volume 7.2; Monocytes % (A) 8 %; Neutrophils # (A) 9.5 k/uL (1.3-7.7); Neutrophils % (A) 73 %; RBC 4.72 m/uL (4.30-5.90); RDW 13.7 % (11.5-15.5); WBC (Perox) 12.33
[2017-03-22 07:40] LABS: Anion Gap 7 mmol/L; Blood Urea Nitrogen 20 mg/dL (9-20); Calcium 8.5 mg/dL (8.4-10.2); Carbon Dioxide 23 mmol/L (22-30); Chloride 98 mmol/L (98-107); Glucose 107 mg/dL (74-99); Non-African American GFR(MDRD) >60 (>60 ml/min/1.73 sqM); Potassium 4.1 mmol/L (3.5-5.1); Sodium 128 mmol/L (137-145)
[2017-03-22] MEDS: METOPROLOL TARTRATE 50 MG TAB PO SCH ×2 (07:56→22:08)
[2017-03-22] MEDS: JARDIANCE 10 MG PO SCH (07:56)
[2017-03-22] MEDS: GLIMEPIRIDE 2 MG TAB PO SCH ×2 (07:57→22:09)
[2017-03-22] MEDS: INSULIN LISPRO (humaLOG) 300 UNIT/3 ML VIAL SQ SCH ×4 (07:57→22:09)
[2017-03-22] MEDS: metFORMIN 500 MG TAB PO SCH ×2 (07:57→17:54)
[2017-03-22] MEDS: LISINOPRIL 20 MG TAB PO SCH ×2 (07:57→22:09)
[2017-03-22 08:08] LABS: Hemoglobin A1C 9.8 % (4.2-6.1)
--- NOTE | 2017-03-22 12:05 | P.NPCON ---
History of Present Illness - Reason for Consult hyponatremia - History of Present Illness Reason for consultation: Hyponatremia History of present illness: Patient is a 86-year-old male seen in renal consultation for hyponatremia. Patient presented to the hospital on March 19 for generalized weakness. Patient states his lower extremities were particularly weak and he was having difficult time with ambulation. He feels better now. His sodium level was 127 on admission and he was maintained on normal saline at 100 mL an hour for about 48 hours. His sodium remained stable at 127. Yesterday the fluids were discontinued and he was maintained on fluid restriction. Sodium level is up to 128 this morning. In his home as I note that he was taking a loop diuretic. He denies any vomiting or diarrhea. His oral intake has been good. Patient has been drinking quite a bit of fluids but denies excessive intake. He denies any history of BPH. Hemodynamically stable with systolic blood pressure in the range of 120 to 130s. Vital signs are stable. General: The patient appeared well nourished and normally developed. HEENT: Head exam is unremarkable. Neck is without jugular venous distension. LUNGS: Lungs are clear to auscultation and percussion. Breath sounds decreased. HEART: Rate and Rhythm are regular. First and second heart sounds normal. No murmurs, rubs or gallops. ABDOMEN: Abdominal exam reveals normal bowel sounds. Non-tender and non- distended. No evidence of peritonitis. EXTREMITITES: No clubbing, cyanosis, or edema. Past Medical History Past Medical History: Cancer, Diabetes Mellitus, GERD/Reflux, Hyperlipidemia, Skin Disorder Additional Past Medical History / Comment(s): see Dr Brandt H&P, constipation, hx skin cancer, inner ear problem-occ lighthead History of Any Multi-Drug Resistant Organisms: None Reported Past Surgical History: Heart Catheterization, Pacemaker, Prostate Surgery Additional Past Surgical History / Comment(s): surgery for detached retina-rt eye, Past Anesthesia/Blood Transfusion Reactions: Motion Sickness Type of Cardiac Device: Permanent Pacemaker Device Placement Date:: about 2007 Past Psychological History: No Psychological Hx Reported Smoking Status: Former smoker Past Alcohol Use History: None Reported Past Drug Use History: None Reported - Past Family History Sister(s) Family Medical History: Cancer Medications and Allergies Home Medications Medication Instructions Recorded Confirmed Type Aspirin [Adult Low Dose Aspirin EC] 81 mg PO HS 08/20/15 03/19/17 History Docusate [Colace] 100 mg PO TID PRN 08/20/15 03/19/17 History Glimepiride [Amaryl] 2 mg PO BID 08/20/15 03/19/17 History Imipramine Pamoate [Tofranil Pm] 75 mg PO HS 08/20/15 03/19/17 History Metoprolol Tartrate [Lopressor] 100 mg PO BID 08/20/15 03/19/17 History Vits A,C,E/Lutein/Minerals 1 tab PO DAILY 08/20/15 03/19/17 History [Ocuvite with Lutein Tablet] metFORMIN HCL [Glucophage] 500 mg PO BID 08/20/15 03/19/17 History Cholecalciferol (Vitamin D3) 2,000 unit PO DAILY 03/19/17 03/19/17 History [Vitamin D3] Empagliflozin [Jardiance] 10 mg PO DAILY 03/19/17 03/19/17 History Furosemide [Lasix] 20 mg PO DAILY 03/19/17 03/19/17 History Multivitamins, Thera [Multivitamin 1 tab PO DAILY 03/19/17 03/19/17 History (formulary)] Ramipril [Altace] 5 mg PO BID 03/19/17 03/19/17 History Allergies Allergy/AdvReac Type Severity Reaction Status Date / Time No Known Allergies Allergy Verified 03/19/17 16:33 Physical Exam Vitals: Vital Signs Temp Pulse Resp BP Pulse Ox 03/22/17 07:00 98.2 F 75 16 138/69 95 03/21/17 22:39 99 16 03/21/17 20:12 98.5 F 99 16 122/67 96 03/21/17 16:00 55 L 16 03/21/17 15:00 99.2 F 55 L 16 116/76 97 Intake and Output 03/21/17 03/22/17 03/22/17 22:59 06:59 14:59 Intake Total 1220 Output Total 600 401 175 Balance 620 -401 -175 Intake: Oral 1220 Output: Urine 600 400 Post Void Residual 175 Stool 1 Other: Voiding Method Urinal Urinal # Voids 3 # Bowel Movements 2 Results - Lab Results Most recent lab results Calcium 8.5 mg/dL (8.4-10.2) 03/22/17 07:08 03/22/17 07:08 03/22/17 07:08
[2017-03-22 12:13] LABS: Glucose,Whole Blood 253 mg/dL (75-99)
[2017-03-22] MEDS: MULTIVITAMINS, THERA 1 EACH TAB PO SCH (13:01)
[2017-03-22] MEDS: SODIUM CHLORIDE TAB 1 GM TAB PO SCH ×2 (13:01→22:11)
[2017-03-22] MEDS: CHOLECALCIFEROL 1,000 UNIT TAB PO SCH (13:01)
[2017-03-22] MEDS: VIT A,C & E-LUTEIN-MINERALS 1 EACH TAB PO SCH (13:01)
--- NOTE | 2017-03-22 15:20 | P.PN ---
Subjective Principal diagnosis: Hyponatremia Mr. Multani is an 86-year-old male with a past medical history of diabetes mellitus GERD and hyperlipidemia skin cancer admitted to the hospital for evaluation of generalized weakness. Patient lives independently and his son takes care of him. Patient states that he has been feeling weak and was unable to get out of the bed for the past week and so his son was worried about him so took him to his PCP. The patient mentions that they did blood work for him and later was started to get admitted to the hospital for further evaluation. Patient is a poor historian. As per the ED notes he was evaluated by his PCP and was concerned that he might have right-sided weakness, they performed a UA which did not reveal any UTI and so decided to send him to the emergency department for further evaluation. Patient mentions that he lost almost 35 pounds in the past 3 years. He states his appetite has been okay. Patient denies having any UTI symptoms. He denies having any cough fever chills or rigors. No chest pain or difficulty in breathing, no palpitations. No nausea or vomiting or diarrhea or constipation. He only complains of generalized weakness. No focal weakness. No headaches blurring of vision ENT symptoms. Denies having any loss of consciousness or syncopal episodes. Patient states that he is not able to get out of the bed due to weakness and all his 4 limbs but no focal weakness. Patient did get his CAT scan of his brain in the ED that that was within normal limits. But his labs were significant hyponatremia with sodium of 127. He was started on IV fluids normal saline at 100 mL per hour and admitted. On 03/21/2017- as per the nursing staff report no overnight active issues . Patient has no active complaints. He is comfortably lying in bed appears to be no acute distress. Patient complains of generalized weakness On 03/22/2017 - patient is sitting up in a chair besides his bed. He still complains of generalized weakness. REVIEW OF SYSTEMS CARDIAC - no chest pain or palpitations RESPIRATORY- no difficulty in breathing GI - abdominal pain nausea vomiting or diarrhea - no dysuria or hematuria Objective - Vital Signs Vital signs: Vital Signs Temp 98.2 F 03/22/17 07:00 Pulse 75 03/22/17 07:00 Resp 16 03/22/17 07:00 BP 138/69 03/22/17 07:00 Pulse Ox 95 03/22/17 07:00 Intake & Output 03/21/17 03/22/17 03/22/17 18:59 06:59 18:59 Intake Total 180 1160 Output Total 600 1001 175 Balance -420 159 -175 Intake: Oral 180 1160 Output: Urine 600 1000 Post Void Residual 175 Stool 1 Other: Voiding Method Urinal Urinal Urinal # Voids 3 # Bowel Movements 2 - Exam GENERAL EXAM GEN. APPEARANCE: Thin built HEAD EXAM: atraumatic, normocephalic, normal inspection EYE EXAM: normal appearance, PERRL, EOMI. Absent: scleral icterus, conjunctival injection, periorbital swelling ENT EXAM: normal exam, mucous membranes moist NECK EXAM: No thyromegaly, no lymphadenopathy RESPIRATORY EXAM: normal lung sounds bilaterally. No wheeze or crackles CARDIOVASCULAR EXAM: S1 and S2 heard. No abnormal sounds. GI/ABDOMINAL EXAM: soft, normal bowel sounds. Absent: distended, tenderness, guarding, rebound, rigid EXTREMITIES EXAM: normal inspection, full ROM, normal capillary refill. Absent : tenderness, pedal edema, joint swelling, calf tenderness NEUROLOGICAL EXAM: alert, oriented X3, no focal neurological deficits PSYCHIATRIC EXAM: normal affect, normal mood SKIN EXAM: warm, dry, intact, normal color. Absent: rash - Labs CBC & Chem 7: 03/22/17 07:08 03/22/17 07:08 Labs: Abnormal Lab Results - Last 24 Hours (Table) 03/21/17 03/21/17 03/21/17 Range/Units 08:49 14:53 16:55 WBC (3.8-10.6) k/uL Neutrophils # (1.3-7.7) k/uL Sodium (137-145) mmol/L Creatinine (0.66-1.25) mg/dL Glucose (74-99) mg/dL POC Glucose (mg/dL) 148 H (75-99) mg/dL Hemoglobin A1c 9.8 H (4.2-6.1) % Osmolality 277 L (280-301) mosm/kg 03/21/17 03/22/17 03/22/17 Range/Units 20:00 07:08 07:08 WBC 13.0 H (3.8-10.6) k/uL Neutrophils # 9.5 H (1.3-7.7) k/uL Sodium 128 L (137-145) mmol/L Creatinine 0.64 L (0.66-1.25) mg/dL Glucose 107 H (74-99) mg/dL POC Glucose (mg/dL) 236 H (75-99) mg/dL Hemoglobin A1c (4.2-6.1) % Osmolality (280-301) mosm/kg 03/22/17 03/22/17 03/22/17 Range/Units 07:08 07:21 12:11 WBC (3.8-10.6) k/uL Neutrophils # (1.3-7.7) k/uL Sodium (137-145) mmol/L Creatinine (0.66-1.25) mg/dL Glucose (74-99) mg/dL POC Glucose (mg/dL) 139 H 253 H (75-99) mg/dL Hemoglobin A1c (4.2-6.1) % Osmolality 267 L (280-301) mosm/kg Microbiology - Last 24 Hours (Table) 03/21/17 14:16 Urine Culture - Preliminary Urine,Voided Assessment and Plan Plan: ASSESSMENT Generalized weakness most likely secondary to hyponatremia 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 But patient's sodium has still remained the same and 128. Will get urine osmolality, urine sodium and urine potassium .Can be secondary to SIADH - patient has been placed on fluid restriction by Nephrology . We will have PT OT on board. Continue with the rest of his medication regimen . Further recommendations to follow depending on the progress of the patient. Overall prognosis guarded.
[2017-03-22 16:50] LABS: Glucose,Whole Blood 199 mg/dL (75-99)
[2017-03-22 20:36] LABS: Glucose,Whole Blood 177 mg/dL (75-99)
[2017-03-22] MEDS: IMIPRAMINE 25 MG TAB PO SCH (22:09)
[2017-03-22] MEDS: ASPIRIN 81 MG CHEW PO SCH (22:09)
[2017-03-23 07:03] LABS: Glucose,Whole Blood 219 mg/dL (75-99)
[2017-03-23] MEDS: JARDIANCE 10 MG PO SCH (07:42)
[2017-03-23] MEDS: SODIUM CHLORIDE TAB 1 GM TAB PO SCH ×2 (07:42→21:13)
[2017-03-23] MEDS: METOPROLOL TARTRATE 50 MG TAB PO SCH ×2 (07:42→21:13)
[2017-03-23] MEDS: INSULIN LISPRO (humaLOG) 300 UNIT/3 ML VIAL SQ SCH ×4 (07:43→21:13)
[2017-03-23] MEDS: LISINOPRIL 20 MG TAB PO SCH ×2 (07:43→21:13)
[2017-03-23] MEDS: metFORMIN 500 MG TAB PO SCH ×2 (07:43→17:46)
[2017-03-23] MEDS: GLIMEPIRIDE 2 MG TAB PO SCH ×2 (07:43→21:13)
[2017-03-23 08:19] LABS: Basophils % (A) 0 %; CH 29.3; CHCM 34.2; Eosinophils # (A) 0.2 k/uL (0-0.7); Eosinophils % (A) 1 %; HCT 39.5 % (39.0-53.0); HDW 2.47; HGB 13.4 gm/dL (13.0-17.5); Luc # (Auto) 0.31; Luc % (Auto) 3; Lymphocytes # (A) 2.1 k/uL (1.0-4.8); Lymphocytes % (A) 17 %; MCH 29.2 pg (25.0-35.0); MCV 85.9 fL (80.0-100.0); Monocytes # (A) 0.9 k/uL (0-1.0); Monocytes % (A) 8 %; Neutrophils # (A) 8.4 k/uL (1.3-7.7); Neutrophils % (A) 71 %; RDW 13.6 % (11.5-15.5); WBC 11.9 k/uL (3.8-10.6); WBC (Perox) 12.09
[2017-03-23 08:22] LABS: Anion Gap 8 mmol/L; Blood Urea Nitrogen 25 mg/dL (9-20); Calcium 8.7 mg/dL (8.4-10.2); Carbon Dioxide 24 mmol/L (22-30); Chloride 97 mmol/L (98-107); Glucose 138 mg/dL (74-99); Non-African American GFR(MDRD) >60 (>60 ml/min/1.73 sqM); Potassium 4.6 mmol/L (3.5-5.1); Sodium 129 mmol/L (137-145)
--- NOTE | 2017-03-23 09:34 | XR ---
EXAMINATION TYPE: XR chest 1V portable DATE OF EXAM: 03/23/2017 COMPARISON: NONE HISTORY: ECF placement TECHNIQUE: Single frontal view of the chest is obtained. FINDINGS: Limited inspiration with subsegmental linear changes. Diffuse osteopenia. Cardiac device n oted. No pneumothorax. Arthropathy of the shoulders. IMPRESSION: 1. Minimal subsegmental basilar changes likely related to atelectasis from reduced inspiration.
[2017-03-23 11:09] LABS: Glucose,Whole Blood 154 mg/dL (75-99)
--- NOTE | 2017-03-23 11:27 | P.PN ---
Subjective Patient noted to be lethargic and weak this morning. Continues with consultation with nephrology regarding hyponatremia Objective - Vital Signs Vital signs: Vital Signs Temp 98.4 F 03/23/17 07:00 Pulse 70 03/23/17 07:00 Resp 16 03/23/17 07:00 BP 133/65 03/23/17 07:00 Pulse Ox 93 L 03/23/17 07:00 Intake & Output 03/22/17 03/23/17 03/23/17 18:59 06:59 18:59 Intake Total 140 Output Total 375 Balance -375 140 Intake: Intake, IV Titration 140 Amount Sodium Chloride 0.9% 1, 140 000 ml @ 100 mls/hr IV . Q10H [facility] Rx#:[id number] Output: Urine 200 Post Void Residual 175 Other: Voiding Method Urinal Urinal Urinal # Voids 4 1 - Constitutional General appearance: Present: mild distress - EENT Eyes: Present: PERRLA Ears: bilateral: normal - Neck Neck: Present: normal ROM - Respiratory Respiratory: bilateral: CTA - Cardiovascular Rhythm: regular - Gastrointestinal General gastrointestinal: Present: soft - Integumentary Integumentary: Present: normal - Neurologic Neurologic: Present: CNII-XII intact - Musculoskeletal Musculoskeletal: Present: generalized weakness - Psychiatric Psychiatric Comment(s): Patient lethargic and not very communicative today Psychiatric: Present: A&O x's 3 - Labs CBC & Chem 7: 03/23/17 07:26 03/23/17 07:26 Labs: Abnormal Lab Results - Last 24 Hours (Table) 03/22/17 03/22/17 03/22/17 Range/Units 07:08 12:11 16:45 WBC (3.8-10.6) k/uL Neutrophils # (1.3-7.7) k/uL Sodium (137-145) mmol/L Chloride (98-107) mmol/L BUN (9-20) mg/dL Glucose (74-99) mg/dL POC Glucose (mg/dL) 253 H 199 H (75-99) mg/dL Osmolality 267 L (280-301) mosm/kg 03/22/17 03/23/17 03/23/17 Range/Units 20:34 07:01 07:26 WBC 11.9 H (3.8-10.6) k/uL Neutrophils # 8.4 H (1.3-7.7) k/uL Sodium (137-145) mmol/L Chloride (98-107) mmol/L BUN (9-20) mg/dL Glucose (74-99) mg/dL POC Glucose (mg/dL) 177 H 219 H (75-99) mg/dL Osmolality (280-301) mosm/kg 03/23/17 03/23/17 Range/Units 07:26 11:02 WBC (3.8-10.6) k/uL Neutrophils # (1.3-7.7) k/uL Sodium 129 L (137-145) mmol/L Chloride 97 L (98-107) mmol/L BUN 25 H (9-20) mg/dL Glucose 138 H (74-99) mg/dL POC Glucose (mg/dL) 154 H (75-99) mg/dL Osmolality (280-301) mosm/kg Microbiology - Last 24 Hours (Table) 03/21/17 14:16 Urine Culture - Preliminary Urine,Voided - Imaging and Cardiology CT Scan - head: report reviewed Assessment and Plan Plan: Assessment Generalized weakness secondary to hyponatremia Hyponatremia euvolemic Diabetes type 2 GERD History of skin cancer Hyperlipidemia history of permanent pacemaker Plan Continue consultation with the nephrology regarding hyponatremia Plan is for placement in extended care facility
[2017-03-23] MEDS: MULTIVITAMINS, THERA 1 EACH TAB PO SCH (12:33)
[2017-03-23] MEDS: CHOLECALCIFEROL 1,000 UNIT TAB PO SCH (12:33)
[2017-03-23] MEDS: VIT A,C & E-LUTEIN-MINERALS 1 EACH TAB PO SCH (12:33)
--- NOTE | 2017-03-23 14:12 | P.PN ---
Subjective Patient is seen in follow-up for hyponatremia. Sodium level is up to 129 today. There is no evidence of urinary retention. His oral intake is good. Good urine output. No vomiting or diarrhea. Hemodynamically stable. Denies chest pain or shortness of breath. Vital signs are stable. General: The patient appeared well nourished and normally developed. HEENT: Head exam is unremarkable. Neck is without jugular venous distension. LUNGS: Lungs are clear to auscultation and percussion. Breath sounds decreased. HEART: Rate and Rhythm are regular. First and second heart sounds normal. No murmurs, rubs or gallops. ABDOMEN: Abdominal exam reveals normal bowel sounds. Non-tender and non- distended. No evidence of peritonitis. EXTREMITITES: No clubbing, cyanosis, or edema. Objective - Vital Signs Vital signs: Vital Signs Temp 98 F 03/23/17 14:01 Pulse 84 03/23/17 14:01 Resp 16 03/23/17 14:01 BP 108/70 03/23/17 14:01 Pulse Ox 96 03/23/17 14:01 Intake & Output 03/22/17 03/23/17 03/23/17 18:59 06:59 18:59 Intake Total 140 Output Total 375 Balance -375 140 Intake: Intake, IV Titration 140 Amount Sodium Chloride 0.9% 1, 140 000 ml @ 100 mls/hr IV . Q10H [facility] Rx#:[id number] Output: Urine 200 Post Void Residual 175 Other: Voiding Method Urinal Urinal Urinal # Voids 4 1 4 - Labs CBC & Chem 7: 03/23/17 07:26 03/23/17 07:26 Labs: Abnormal Lab Results - Last 24 Hours (Table) 03/22/17 03/22/17 03/23/17 Range/Units 16:45 20:34 07:01 WBC (3.8-10.6) k/uL Neutrophils # (1.3-7.7) k/uL Sodium (137-145) mmol/L Chloride (98-107) mmol/L BUN (9-20) mg/dL Glucose (74-99) mg/dL POC Glucose (mg/dL) 199 H 177 H 219 H (75-99) mg/dL 03/23/17 03/23/17 03/23/17 Range/Units 07:26 07:26 11:02 WBC 11.9 H (3.8-10.6) k/uL Neutrophils # 8.4 H (1.3-7.7) k/uL Sodium 129 L (137-145) mmol/L Chloride 97 L (98-107) mmol/L BUN 25 H (9-20) mg/dL Glucose 138 H (74-99) mg/dL POC Glucose (mg/dL) 154 H (75-99) mg/dL Microbiology - Last 24 Hours (Table) 03/21/17 14:16 Urine Culture - Final Urine,Voided Assessment and Plan Plan: Assessment: #1. Hyponatremia. This appears euvolemic in nature as the patient's hemodynamically stable and he did receive about 48 hours of IV fluids with no improvement in his sodium level. Sodium level is improved to 129 with fluid restriction and salt tabs. No evidence of urinary retention. 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 #2. Generalized weakness. #3. Diabetes mellitus. #4. Hypertension. Controlled. Plan: Maintain 1.2 L fluid restriction. Maintain ensure with meals. Continue salt tabs 1 g twice daily. Discontinue imipramine - I discussed with the daughter present at bedside. She states he takes it for a urinary incontinence and not for depression. Repeat electrolytes in the morning. May benefit from loop diuretics.
[2017-03-23 17:24] LABS: Glucose,Whole Blood 290 mg/dL (75-99)
[2017-03-23 20:36] LABS: Glucose,Whole Blood 208 mg/dL (75-99)
[2017-03-23] MEDS: ASPIRIN 81 MG CHEW PO SCH (21:13)
[2017-03-24 07:14] LABS: Glucose,Whole Blood 151 mg/dL (75-99)
[2017-03-24] MEDS: JARDIANCE 10 MG PO SCH (07:29)
[2017-03-24] MEDS: metFORMIN 500 MG TAB PO SCH ×2 (07:29→17:39)
[2017-03-24] MEDS: LISINOPRIL 20 MG TAB PO SCH ×2 (07:29→22:08)
[2017-03-24] MEDS: SODIUM CHLORIDE TAB 1 GM TAB PO SCH ×2 (07:29→22:08)
[2017-03-24] MEDS: GLIMEPIRIDE 2 MG TAB PO SCH ×2 (07:30→22:08)
[2017-03-24] MEDS: METOPROLOL TARTRATE 50 MG TAB PO SCH ×2 (07:31→22:08)
[2017-03-24] MEDS: INSULIN LISPRO (humaLOG) 300 UNIT/3 ML VIAL SQ SCH ×4 (07:51→22:09)
[2017-03-24 08:14] LABS: Anion Gap 7 mmol/L; Blood Urea Nitrogen 27 mg/dL (9-20); Calcium 8.6 mg/dL (8.4-10.2); Carbon Dioxide 26 mmol/L (22-30); Chloride 96 mmol/L (98-107); Glucose 106 mg/dL (74-99); Non-African American GFR(MDRD) >60 (>60 ml/min/1.73 sqM); Potassium 4.6 mmol/L (3.5-5.1); Sodium 129 mmol/L (137-145)
--- NOTE | 2017-03-24 10:45 | P.PN ---
Subjective Principal diagnosis: Sitting at bedside today continues to be confused and continue treatment for hyponatremia with Dr. Purcell Objective - Vital Signs Vital signs: Vital Signs Temp 97.9 F 03/24/17 07:00 Pulse 79 03/24/17 07:00 Resp 16 03/24/17 07:00 BP 131/68 03/24/17 07:00 Pulse Ox 98 03/24/17 07:00 Intake & Output 03/23/17 03/24/17 03/24/17 18:59 06:59 18:59 Output Total 200 550 Balance -200 -550 Weight 51.256 kg Output: Urine 200 550 Other: Voiding Method Urinal Urinal # Voids 4 2 # Bowel Movements 1 - Constitutional General appearance: Present: mild distress, thin - EENT Eyes: Present: PERRLA Ears: bilateral: normal - Neck Neck: Present: normal ROM - Respiratory Respiratory: bilateral: CTA - Cardiovascular Rhythm: regular - Gastrointestinal General gastrointestinal: Present: soft - Integumentary Integumentary: Present: normal - Neurologic Neurologic: Present: CNII-XII intact - Musculoskeletal Musculoskeletal: Present: generalized weakness - Psychiatric Psychiatric Comment(s): Short-term memory problems. No insight into disease process - Labs CBC & Chem 7: 03/23/17 07:26 03/24/17 07:15 Labs: Abnormal Lab Results - Last 24 Hours (Table) 03/23/17 03/23/17 03/23/17 Range/Units 11:02 16:52 20:22 Sodium (137-145) mmol/L Chloride (98-107) mmol/L BUN (9-20) mg/dL Glucose (74-99) mg/dL POC Glucose (mg/dL) 154 H 290 H 208 H (75-99) mg/dL 03/24/17 03/24/17 Range/Units 07:12 07:15 Sodium 129 L (137-145) mmol/L Chloride 96 L (98-107) mmol/L BUN 27 H (9-20) mg/dL Glucose 106 H (74-99) mg/dL POC Glucose (mg/dL) 151 H (75-99) mg/dL Microbiology - Last 24 Hours (Table) 03/21/17 14:16 Urine Culture - Final Urine,Voided Assessment and Plan Plan: Assessment Generalized weakness secondary to hyponatremia Hyponatremia euvolemic Diabetes type 2 History of GERD History of permanent pacemaker Right eye blindness Plan Continue consultation with nephrology for hypo- Natremia hopeful discharge soon to extended care facility
--- NOTE | 2017-03-24 11:20 | P.PN ---
Subjective Patient is seen in follow-up for hyponatremia. Sodium level stable at 129 today. There is no evidence of urinary retention. His oral intake is good. Good urine output. No vomiting or diarrhea. Hemodynamically stable. Denies chest pain or shortness of breath. Vital signs are stable. General: The patient appeared well nourished and normally developed. HEENT: Head exam is unremarkable. Neck is without jugular venous distension. LUNGS: Lungs are clear to auscultation and percussion. Breath sounds decreased. HEART: Rate and Rhythm are regular. First and second heart sounds normal. No murmurs, rubs or gallops. ABDOMEN: Abdominal exam reveals normal bowel sounds. Non-tender and non- distended. No evidence of peritonitis. EXTREMITITES: No clubbing, cyanosis, or edema. Objective - Vital Signs Vital signs: Vital Signs Temp 97.9 F 03/24/17 07:00 Pulse 79 03/24/17 07:00 Resp 16 03/24/17 07:00 BP 131/68 03/24/17 07:00 Pulse Ox 98 03/24/17 07:00 Intake & Output 03/23/17 03/24/17 03/24/17 18:59 06:59 18:59 Output Total 200 550 200 Balance -200 -550 -200 Weight 51.256 kg Output: Urine 200 550 200 Other: Voiding Method Urinal Urinal Toilet Urinal # Voids 4 2 2 # Bowel Movements 1 - Labs CBC & Chem 7: 03/23/17 07:26 03/24/17 07:15 Labs: Abnormal Lab Results - Last 24 Hours (Table) 03/23/17 03/23/17 03/24/17 Range/Units 16:52 20:22 07:12 Sodium (137-145) mmol/L Chloride (98-107) mmol/L BUN (9-20) mg/dL Glucose (74-99) mg/dL POC Glucose (mg/dL) 290 H 208 H 151 H (75-99) mg/dL 03/24/17 Range/Units 07:15 Sodium 129 L (137-145) mmol/L Chloride 96 L (98-107) mmol/L BUN 27 H (9-20) mg/dL Glucose 106 H (74-99) mg/dL POC Glucose (mg/dL) (75-99) mg/dL Microbiology - Last 24 Hours (Table) 03/21/17 14:16 Urine Culture - Final Urine,Voided Assessment and Plan Plan: Assessment: #1. Hyponatremia. This appears euvolemic in nature as the patient's hemodynamically stable and he did receive about 48 hours of IV fluids with no improvement in his sodium level. Sodium level is stable at 129 with fluid restriction and salt tabs. No evidence of urinary retention. 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 #2. Generalized weakness. #3. Diabetes mellitus. #4. Hypertension. Controlled. Plan: Maintain 1.2 L fluid restriction. Maintain ensure with meals. Continue salt tabs 1 g twice daily. Discontinue imipramine - I discussed with the daughter present at bedside. She states he takes it for a urinary incontinence and not for depression. Repeat electrolytes in the morning. Resume Lasix 20 mg orally twice daily.
[2017-03-24] MEDS: VIT A,C & E-LUTEIN-MINERALS 1 EACH TAB PO SCH (11:47)
[2017-03-24] MEDS: MULTIVITAMINS, THERA 1 EACH TAB PO SCH (11:47)
[2017-03-24 12:00] LABS: Glucose,Whole Blood 216 mg/dL (75-99)
[2017-03-24] MEDS: CHOLECALCIFEROL 1,000 UNIT TAB PO SCH (12:01)
[2017-03-24] MEDS: FUROSEMIDE 20 MG TAB PO SCH (16:05)
[2017-03-24 16:27] LABS: Glucose,Whole Blood 253 mg/dL (75-99)
[2017-03-24 20:34] LABS: Glucose,Whole Blood 298 mg/dL (75-99)
[2017-03-24] MEDS: ASPIRIN 81 MG CHEW PO SCH (22:08)
[2017-03-25 07:28] LABS: Glucose,Whole Blood 165 mg/dL (75-99)
[2017-03-25 07:51] LABS: Anion Gap 7 mmol/L; Blood Urea Nitrogen 32 mg/dL (9-20); Calcium 8.9 mg/dL (8.4-10.2); Carbon Dioxide 26 mmol/L (22-30); Chloride 98 mmol/L (98-107); Glucose 163 mg/dL (74-99); Non-African American GFR(MDRD) >60 (>60 ml/min/1.73 sqM); Potassium 4.8 mmol/L (3.5-5.1); Sodium 131 mmol/L (137-145)
[2017-03-25] MEDS: SODIUM CHLORIDE TAB 1 GM TAB PO SCH ×2 (09:42→20:45)
[2017-03-25] MEDS: JARDIANCE 10 MG PO SCH (09:42)
[2017-03-25] MEDS: LISINOPRIL 20 MG TAB PO SCH ×2 (09:42→20:42)
[2017-03-25] MEDS: METOPROLOL TARTRATE 50 MG TAB PO SCH ×2 (09:42→20:42)
[2017-03-25] MEDS: VIT A,C & E-LUTEIN-MINERALS 1 EACH TAB PO SCH (09:43)
[2017-03-25] MEDS: FUROSEMIDE 20 MG TAB PO SCH ×2 (09:43→17:18)
[2017-03-25] MEDS: GLIMEPIRIDE 2 MG TAB PO SCH ×2 (09:43→20:42)
[2017-03-25] MEDS: metFORMIN 500 MG TAB PO SCH ×2 (09:43→17:18)
[2017-03-25] MEDS: INSULIN LISPRO (humaLOG) 300 UNIT/3 ML VIAL SQ SCH ×4 (09:44→20:44)
[2017-03-25 11:22] LABS: Glucose,Whole Blood 428 mg/dL (75-99)
--- NOTE | 2017-03-25 12:21 | P.PN ---
Subjective Principal diagnosis: Hyponatremia is been corrected to 131. Blood sugar this morning for 28 during insulin to scale if this stabilizes hopeful discharge to extended care facility Objective - Vital Signs Vital signs: Vital Signs Temp 97.8 F 03/25/17 07:00 Pulse 83 03/25/17 07:00 Resp 18 03/25/17 07:00 BP 122/65 03/25/17 07:00 Pulse Ox 96 03/25/17 07:00 Intake & Output 03/24/17 03/25/17 03/25/17 18:59 06:59 18:59 Intake Total 780 100 780 Output Total 651 1 Balance 129 99 780 Weight 51.256 kg Intake: Oral 780 100 780 Output: Urine 650 Stool 1 1 Other: Voiding Method Toilet Toilet Urinal Urinal # Voids 1 2 # Bowel Movements 1 1 - Constitutional General appearance: Present: average body habitus - EENT Eyes: Present: PERRLA Ears: bilateral: normal - Neck Neck: Present: normal ROM - Respiratory Respiratory: bilateral: CTA - Cardiovascular Rhythm: regular - Gastrointestinal General gastrointestinal: Present: soft - Integumentary Integumentary: Present: normal - Neurologic Neurologic: Present: CNII-XII intact - Musculoskeletal Musculoskeletal: Present: generalized weakness - Psychiatric Psychiatric Comment(s): dementia - Labs CBC & Chem 7: 03/23/17 07:26 03/25/17 07:18 Labs: Abnormal Lab Results - Last 24 Hours (Table) 03/24/17 03/24/17 03/25/17 Range/Units 16:25 20:32 07:18 Sodium 131 L (137-145) mmol/L BUN 32 H (9-20) mg/dL Glucose 163 H (74-99) mg/dL POC Glucose (mg/dL) 253 H 298 H (75-99) mg/dL 03/25/17 03/25/17 Range/Units 07:26 11:18 Sodium (137-145) mmol/L BUN (9-20) mg/dL Glucose (74-99) mg/dL POC Glucose (mg/dL) 165 H 428 H (75-99) mg/dL Assessment and Plan Plan: Assessment Generalized weakened secondary to hyponatremia euvolemic Diabetes type 2 GERD hyperlipidemia Permit pacemaker Right eye blindness Plan Patient is stabilized blood sugar at 428 hopeful the we can normalize and then plan is to discharge to extended care facility
[2017-03-25 12:37] LABS: Glucose,Whole Blood 333 mg/dL (75-99)
[2017-03-25] MEDS: CHOLECALCIFEROL 1,000 UNIT TAB PO SCH (13:25)
[2017-03-25] MEDS: MULTIVITAMINS, THERA 1 EACH TAB PO SCH (13:25)
[2017-03-25 14:54] LABS: Glucose,Whole Blood 275 mg/dL (75-99)
[2017-03-25] MEDS ORDERED: INSULIN LISPRO (humaLOG) 300 UNIT/3 ML VIAL SQ ONE (15:26)
[2017-03-25 17:16] LABS: Glucose,Whole Blood 221 mg/dL (75-99)
[2017-03-25] MEDS: ASPIRIN 81 MG CHEW PO SCH (20:42)
[2017-03-25 20:54] LABS: Glucose,Whole Blood 227 mg/dL (75-99)
[2017-03-25 23:29] VITALS: RESP 16
[2017-03-26 07:19] LABS: Glucose,Whole Blood 171 mg/dL (75-99)
[2017-03-26] MEDS: SODIUM CHLORIDE TAB 1 GM TAB PO SCH (07:57)
[2017-03-26] MEDS: JARDIANCE 10 MG PO SCH (07:57)
[2017-03-26] MEDS: METOPROLOL TARTRATE 50 MG TAB PO SCH (07:58)
[2017-03-26] MEDS: FUROSEMIDE 20 MG TAB PO SCH (07:58)
[2017-03-26] MEDS: GLIMEPIRIDE 2 MG TAB PO SCH (07:58)
[2017-03-26] MEDS: LISINOPRIL 20 MG TAB PO SCH (07:58)
[2017-03-26] MEDS: metFORMIN 500 MG TAB PO SCH (07:58)
[2017-03-26] MEDS: INSULIN LISPRO (humaLOG) 300 UNIT/3 ML VIAL SQ SCH ×2 (07:59→13:05)
[2017-03-26 08:04] VITALS: BP 121/62; PULSE 105; TEMP 98
[2017-03-26 08:16] LABS: Basophils # (A) 0.1 k/uL (0-0.2); Basophils % (A) 0 %; CH 29.8; CHCM 33.5; Eosinophils # (A) 0.2 k/uL (0-0.7); Eosinophils % (A) 1 %; HCT 45.5 % (39.0-53.0); HDW 2.39; HGB 14.9 gm/dL (13.0-17.5); Luc # (Auto) 0.38; Luc % (Auto) 3; Lymphocytes # (A) 2.2 k/uL (1.0-4.8); Lymphocytes % (A) 16 %; MCH 29.2 pg (25.0-35.0); MCHC 32.7 g/dL (31.0-37.0); MCV 89.4 fL (80.0-100.0); Mean Platelet Volume 7.9; Monocytes % (A) 7 %; Neutrophils % (A) 73 %; RBC 5.09 m/uL (4.30-5.90); RDW 14.7 % (11.5-15.5); WBC 13.8 k/uL (3.8-10.6); WBC (Perox) 13.03
[2017-03-26 08:34] LABS: Anion Gap 9 mmol/L; Blood Urea Nitrogen 40 mg/dL (9-20); Calcium 9.2 mg/dL (8.4-10.2); Carbon Dioxide 27 mmol/L (22-30); Chloride 100 mmol/L (98-107); Glucose 161 mg/dL (74-99); Non-African American GFR(MDRD) >60 (>60 ml/min/1.73 sqM); Potassium 4.6 mmol/L (3.5-5.1); Sodium 136 mmol/L (137-145)
--- NOTE | 2017-03-26 09:04 | P.PN ---
Subjective Patient is seen in follow-up for hyponatremia. Sodium level improved to 136 today. There is no evidence of urinary retention. His oral intake is good. Good urine output. No vomiting or diarrhea. Hemodynamically stable. Denies chest pain or shortness of breath. Vital signs are stable. General: The patient appeared well nourished and normally developed. HEENT: Head exam is unremarkable. Neck is without jugular venous distension. LUNGS: Lungs are clear to auscultation and percussion. Breath sounds decreased. HEART: Rate and Rhythm are regular. First and second heart sounds normal. No murmurs, rubs or gallops. ABDOMEN: Abdominal exam reveals normal bowel sounds. Non-tender and non- distended. No evidence of peritonitis. EXTREMITITES: No clubbing, cyanosis, or edema. Objective - Vital Signs Vital signs: Vital Signs Temp 98 F 03/26/17 07:00 Pulse 105 H 03/26/17 07:00 Resp 16 03/26/17 07:00 BP 121/62 03/26/17 07:00 Pulse Ox 98 03/26/17 07:00 Intake & Output 03/25/17 03/26/17 03/26/17 18:59 06:59 18:59 Intake Total 1860 50 Output Total 501 1 Balance 1359 49 Intake: Oral 1320 50 Other 540 Output: Urine 500 Stool 1 1 Other: Voiding Method Urinal Urinal Diaper Diaper # Voids 1 2 - Labs CBC & Chem 7: 03/26/17 07:45 03/26/17 07:45 Labs: Abnormal Lab Results - Last 24 Hours (Table) 03/25/17 03/25/17 03/25/17 Range/Units 11:18 12:32 14:52 WBC (3.8-10.6) k/uL Neutrophils # (1.3-7.7) k/uL Sodium (137-145) mmol/L BUN (9-20) mg/dL Glucose (74-99) mg/dL POC Glucose (mg/dL) 428 H 333 H 275 H (75-99) mg/dL 03/25/17 03/25/17 03/26/17 Range/Units 17:11 20:34 07:17 WBC (3.8-10.6) k/uL Neutrophils # (1.3-7.7) k/uL Sodium (137-145) mmol/L BUN (9-20) mg/dL Glucose (74-99) mg/dL POC Glucose (mg/dL) 221 H 227 H 171 H (75-99) mg/dL 03/26/17 03/26/17 Range/Units 07:45 07:45 WBC 13.8 H (3.8-10.6) k/uL Neutrophils # 10.0 H (1.3-7.7) k/uL Sodium 136 L (137-145) mmol/L BUN 40 H (9-20) mg/dL Glucose 161 H (74-99) mg/dL POC Glucose (mg/dL) (75-99) mg/dL Assessment and Plan Plan: Assessment: #1. Hyponatremia. This appears euvolemic in nature as the patient's hemodynamically stable and he did receive about 48 hours of IV fluids with no improvement in his sodium level. Sodium level is improved to 136 with fluid restriction and salt tabs. Also on loop diuretics now. No evidence of urinary retention. 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 #2. Generalized weakness. #3. Diabetes mellitus. #4. Hypertension. Controlled. Plan: Maintain 1.2 L fluid restriction. Maintain ensure with meals. Continue salt tabs 1 g twice daily. Discontinued imipramine - I discussed with the daughter present at bedside. She states he takes it for a urinary incontinence and not for depression. Repeat electrolytes in the morning. Continue Lasix 20 mg orally twice daily. Stable to be discharged home from nephrology standpoint and to follow-up as an outpatient in the next 2 weeks.
[2017-03-26 11:13] LABS: Glucose,Whole Blood 265 mg/dL (75-99)
--- NOTE | 2017-03-26 11:24 | P.DS ---
Providers Date of admission: 03/19/17 20:10 Attending physician: Perico Howell Consults: 03/21/17 11:04 Consult Physician Routine Consulting Provider: Luis Purcell Consult Reason/Comments: low NA Do you want consulting provider notified?: Yes Primary care physician: Sung Ludwig [facility] Course: 86-year-old admitted for generalized weakness and euvolemic hyponatremia and significant improvement with fluid restriction Lasix and sodium tablets and patient is being discharged on these. Patient was a valid by nephrology. Patient will be discharged to subacute rehabilitation Generalized weakened secondary to hyponatremia euvolemic Diabetes type 2 GERD hyperlipidemia Right eye blindness PHYSICAL EXAMINATION: GENERAL: Patient is excessively sleepy which apparently is normal for him , not in any acute distress. Thin built HEENT: Pupils are round and equally reacting to light. EOMI. No scleral icterus. No conjunctival pallor. Normocephalic, atraumatic. No pharyngeal erythema. No thyromegaly. CARDIOVASCULAR: S1 and S2 present. No murmurs, rubs, or gallops. PULMONARY: Chest is clear to auscultation, no wheezing or crackles. ABDOMEN: Soft, nontender, nondistended, normoactive bowel sounds. No palpable organomegaly. MUSCULOSKELETAL: No joint swelling or deformity. EXTREMITIES: No cyanosis, clubbing, or pedal edema. NEUROLOGICAL: Gross neurological examination did not reveal any focal deficits. SKIN: No rashes. Patient Condition at Discharge: Good Plan - Discharge Summary New Discharge Prescriptions: Continue metFORMIN HCL [Glucophage] 500 mg PO BID Glimepiride [Amaryl] 2 mg PO BID Docusate [Colace] 100 mg PO TID PRN PRN Reason: Constipation Imipramine Pamoate [Tofranil Pm] 75 mg PO HS Aspirin [Adult Low Dose Aspirin EC] 81 mg PO HS Vits A,C,E/Lutein/Minerals [Ocuvite with Lutein Tablet] 1 tab PO DAILY Multivitamins, Thera [Multivitamin (formulary)] 1 tab PO DAILY Cholecalciferol (Vitamin D3) [Vitamin D3] 2,000 unit PO DAILY Furosemide [Lasix] 20 mg PO DAILY Empagliflozin [Jardiance] 10 mg PO DAILY Changed Metoprolol Tartrate [Lopressor] 75 mg PO BID #0 Ramipril [Altace] 5 mg PO DAILY #0 Discharge Medication List Aspirin [Adult Low Dose Aspirin EC] 81 mg PO HS 08/20/15 [History] Docusate [Colace] 100 mg PO TID PRN 08/20/15 [History] Glimepiride [Amaryl] 2 mg PO BID 08/20/15 [History] Imipramine Pamoate [Tofranil Pm] 75 mg PO HS 08/20/15 [History] Vits A,C,E/Lutein/Minerals [Ocuvite with Lutein Tablet] 1 tab PO DAILY 08/20/15 [History] metFORMIN HCL [Glucophage] 500 mg PO BID 08/20/15 [History] Cholecalciferol (Vitamin D3) [Vitamin D3] 2,000 unit PO DAILY 03/19/17 [History] Empagliflozin [Jardiance] 10 mg PO DAILY 03/19/17 [History] Furosemide [Lasix] 20 mg PO DAILY 03/19/17 [History] Multivitamins, Thera [Multivitamin (formulary)] 1 tab PO DAILY 03/19/17 [History ] Metoprolol Tartrate [Lopressor] 75 mg PO BID #0 03/26/17 [Rx] Ramipril [Altace] 5 mg PO DAILY #0 03/26/17 [Rx] Follow up Appointment(s)/Referral(s): Sung Ludwig MD [Primary Care Provider] - 1-2 days
[2017-03-26] MEDS: MULTIVITAMINS, THERA 1 EACH TAB PO SCH (12:51)
[2017-03-26] MEDS: VIT A,C & E-LUTEIN-MINERALS 1 EACH TAB PO SCH (12:51)
[2017-03-26] MEDS: CHOLECALCIFEROL 1,000 UNIT TAB PO SCH (12:51)
== END 2017-03-26 14:43 | DRG 645 ==
LOC: EC 16:32 → 5MS5E 20:10
PROVIDERS: ADMIT Internal Medicine; ATTEND Internal Medicine
DX: E22.2 Syndrome of inappropriate secretion of antidiuretic hormone (principal); E11.9 Type 2 diabetes mellitus without complications; I10 Essential (primary) hypertension; E78.5 Hyperlipidemia, unspecified; H54.41 Blindness, right eye, normal vision left eye; K21.9 Gastro-esophageal reflux disease without esophagitis; Z79.82 Long term (current) use of aspirin; Z79.84 Long term (current) use of oral hypoglycemic drugs; Z79.899 Other long term (current) drug therapy; Z85.828 Personal history of other malignant neoplasm of skin; Z87.891 Personal history of nicotine dependence; Z95.0 Presence of cardiac pacemaker
CPT/HCPCS: 36415; 70450; 71010; 80048; 80053; 81003; 82533; 83036; 83880; 83930; 83935; 84133; 84300; 84443; 84484; 85025; 85027; 85610; 85730; 87086

== ENCOUNTER 2017-04-06 08:58 | Inpatient (IN) | payer MEDICARE ==
[2017-04-06] MEDS ORDERED: SODIUM CHLORIDE 0.9% 1,000 ML IV STA (09:07)
[2017-04-06 09:23] LABS: Basophils % (A) 0 %; CH 29.6; CHCM 32.9; Eosinophils # (A) 0.1 k/uL (0-0.7); Eosinophils % (A) 0 %; HCT 47.4 % (39.0-53.0); HDW 2.36; HGB 15.5 gm/dL (13.0-17.5); Luc # (Auto) 0.19; Luc % (Auto) 1; Lymphocytes % (A) 15 %; MCH 29.7 pg (25.0-35.0); MCHC 32.7 g/dL (31.0-37.0); MCV 90.6 fL (80.0-100.0); Mean Platelet Volume 8.3; Monocytes # (A) 0.6 k/uL (0-1.0); Monocytes % (A) 5 %; Neutrophils # (A) 10.3 k/uL (1.3-7.7); Neutrophils % (A) 78 %; RBC 5.23 m/uL (4.30-5.90); RDW 15.5 % (11.5-15.5); WBC 13.2 k/uL (3.8-10.6)
--- NOTE | 2017-04-06 09:29 | ED ---
General Adult HPI - General Chief complaint: Neuro Symptoms/Deficit Stated complaint: Poss CVA Time Seen by Provider: 04/06/17 09:00 Source: patient, family, EMS, RN notes reviewed Mode of arrival: EMS Limitations: physical limitation - History of Present Illness Initial comments: This is an 86-year-old male who presents emergency Department complaining of strokelike symptoms. Patient was last seen normal last evening this morning when he went to evaluate the patient his left side was completely flaccid he was leaning to the right and his eyes are deviated to the right. Family states on Wednesday he was getting weaker and softer spoken but they did not notice any obvious deficits. Patient is a DO NOT RESUSCITATE. Patient states he has no pain he denies headache. Patient denies chest pain patient denies abdominal pain. There is been no history of trauma. Patient is unable to give us any further history because he is not able to speak. He is able to nod his head. - Related Data Home Medications Medication Instructions Recorded Confirmed Aspirin [Adult Low Dose Aspirin EC] 81 mg PO HS 08/20/15 04/06/17 Docusate [Colace] 100 mg PO TID PRN 08/20/15 04/06/17 Glimepiride [Amaryl] 2 mg PO BID 08/20/15 04/06/17 Imipramine Pamoate [Tofranil Pm] 75 mg PO HS 08/20/15 04/06/17 Vits A,C,E/Lutein/Minerals 1 tab PO DAILY 08/20/15 03/19/17 [Ocuvite with Lutein Tablet] Cholecalciferol (Vitamin D3) 2,000 unit PO DAILY 03/19/17 03/19/17 [Vitamin D3] Empagliflozin [Jardiance] 10 mg PO DAILY 03/19/17 04/06/17 Multivitamins, Thera [Multivitamin 1 tab PO DAILY 03/19/17 03/19/17 (formulary)] Glucerna Shake 1 can PO BID-W/MEALS 04/06/17 04/06/17 Metoprolol Tartrate [Lopressor] 100 mg PO BID 04/06/17 04/06/17 Pantoprazole Sodium [Protonix] 40 mg PO DAILY 04/06/17 04/06/17 Ramipril [Altace] 5 mg PO BID 04/06/17 04/06/17 metFORMIN HCL [Glucophage] 500 mg PO BID 04/06/17 04/06/17 Previous Rx's Medication Instructions Recorded Furosemide [Lasix] 20 mg PO BID@0900,1600 tab 03/26/17 INSULIN LISPRO (HumaLOG) [humaLOG] 0 unit SQ ACHS #1 vial 03/26/17 Sodium Chloride Tab 1 gm PO BID tab 03/26/17 Allergies Allergy/AdvReac Type Severity Reaction Status Date / Time No Known Allergies Allergy Verified 04/06/17 09:39 Review of Systems ROS Statement: Those systems with pertinent positive or pertinent negative responses have been documented in the HPI. ROS Other: All systems not noted in ROS Statement are negative. Past Medical History Past Medical History: Cancer, Diabetes Mellitus, GERD/Reflux, Hyperlipidemia, Skin Disorder Additional Past Medical History / Comment(s): see Dr Brandt H&P, constipation, hx skin cancer, inner ear problem-occ lighthead History of Any Multi-Drug Resistant Organisms: None Reported Past Surgical History: Heart Catheterization, Pacemaker, Prostate Surgery Additional Past Surgical History / Comment(s): surgery for detached retina-rt eye, Past Anesthesia/Blood Transfusion Reactions: Motion Sickness Type of Cardiac Device: Permanent Pacemaker Device Placement Date:: about 2007 Past Psychological History: No Psychological Hx Reported Smoking Status: Former smoker Past Alcohol Use History: None Reported Past Drug Use History: None Reported - Past Family History Sister(s) Family Medical History: Cancer General Exam - General Exam Comments Initial Comments: GENERAL: Patient is well-developed and well-nourished. Patient is nontoxic and well- hydrated and is in no acute distress. ENT: Neck is soft and supple. No significant lymphadenopathy is noted. Oropharynx is clear. Moist mucous membranes. Neck has full range of motion without eliciting any pain. EYES: The sclera were anicteric and conjunctiva were pink and moist. Extraocular movements were intact and pupils were equal round and reactive to light. Eyelids were unremarkable. PULMONARY: Unlabored respirations. Good breath sounds bilaterally. No audible rales rhonchi or wheezing was noted. CARDIOVASCULAR: There is a regular rate and rhythm without any murmurs gallops or rubs. ABDOMEN: Soft and nontender with normal bowel sounds. No palpable organomegaly was noted. There is no palpable pulsatile mass. SKIN: Skin is clear with no lesions or rashes and otherwise unremarkable. NEUROLOGIC: Patient is alert and unable to assess orientation secondary to patient not been able to speak. Patient eyes are deviated to the right he does not appear to be able to look to the left. Patient's head is also deviated to the right unless it is propped up. Patient is flaccid on the left side both leg and arm. I do not particularly notice any facial droop but he is not following my commands to move his face. MUSCULOSKELETAL: Normal extremities with adequate strength and full range of motion. No lower extremity swelling or edema. No calf tenderness. LYMPHATICS: No significant lymphadenopathy is noted PSYCHIATRIC: Unable to assess Limitations: physical limitation Course Vital Signs 04/06/17 04/06/17 04/06/17 08:59 09:20 09:35 Temperature 97.9 F Pulse Rate 119 H 114 H 104 H Respiratory 17 Rate Blood Pressure 119/72 113/78 114/58 O2 Sat by Pulse 93 L 98 99 Oximetry 04/06/17 10:05 Temperature Pulse Rate 102 H Respiratory Rate Blood Pressure 141/76 O2 Sat by Pulse Oximetry Medical Decision Making - Medical Decision Making EKG shows a ventricular paced rhythm at 115 bpm QRS is 162 QT interval is 412 QTC is 569. 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 I spoke with the family about these results they did not want any possible neurosurgery the patient is a DO NOT RESUSCITATE and they wanted no intervention because the patient's wishes were to have no intervention - Lab Data Result diagrams: 04/06/17 09:04 04/06/17 09:04 Lab Results 04/06/17 04/06/17 04/06/17 Range/Units 09:04 09:04 09:04 WBC 13.2 H (3.8-10.6) k/uL RBC 5.23 (4.30-5.90) m/uL Hgb 15.5 (13.0-17.5) gm/dL Hct 47.4 (39.0-53.0) % MCV 90.6 (80.0-100.0) fL MCH 29.7 (25.0-35.0) pg MCHC 32.7 (31.0-37.0) g/dL RDW 15.5 (11.5-15.5) % Plt Count 432 (150-450) k/uL Neutrophils % 78 % Lymphocytes % 15 % Monocytes % 5 % Eosinophils % 0 % Basophils % 0 % Neutrophils # 10.3 H (1.3-7.7) k/uL Lymphocytes # 2.0 (1.0-4.8) k/uL Monocytes # 0.6 (0-1.0) k/uL Eosinophils # 0.1 (0-0.7) k/uL Basophils # 0.0 (0-0.2) k/uL PT (9.0-12.0) sec INR (<1.2) APTT (22.0-30.0) sec Sodium 142 (137-145) mmol/L Potassium 4.8 (3.5-5.1) mmol/L Chloride 106 (98-107) mmol/L Carbon Dioxide 25 (22-30) mmol/L Anion Gap 11 mmol/L BUN 37 H (9-20) mg/dL Creatinine 0.89 (0.66-1.25) mg/dL Est GFR (MDRD) Af Amer >60 (>60 ml/min/1.73 sqM) Est GFR (MDRD) Non-Af >60 (>60 ml/min/1.73 sqM) Glucose 267 H (74-99) mg/dL Calcium 9.8 (8.4-10.2) mg/dL Total Bilirubin 0.8 (0.2-1.3) mg/dL AST 20 (17-59) U/L ALT 29 (21-72) U/L Alkaline Phosphatase 89 (38-126) U/L Total Creatine Kinase <20 L (55-170) U/L CK-MB (CK-2) 1.2 (0.0-2.4) ng/mL CK-MB (CK-2) Rel Index 0.0 Troponin I 0.023 (0.000-0.034) ng/mL Total Protein 6.2 L (6.3-8.2) g/dL Albumin 3.1 L (3.5-5.0) g/dL 04/06/17 Range/Units 09:04 WBC (3.8-10.6) k/uL RBC (4.30-5.90) m/uL Hgb (13.0-17.5) gm/dL Hct (39.0-53.0) % MCV (80.0-100.0) fL MCH (25.0-35.0) pg MCHC (31.0-37.0) g/dL RDW (11.5-15.5) % Plt Count (150-450) k/uL Neutrophils % % Lymphocytes % % Monocytes % % Eosinophils % % Basophils % % Neutrophils # (1.3-7.7) k/uL Lymphocytes # (1.0-4.8) k/uL Monocytes # (0-1.0) k/uL Eosinophils # (0-0.7) k/uL Basophils # (0-0.2) k/uL PT 10.6 (9.0-12.0) sec INR 1.1 (<1.2) APTT 20.8 L (22.0-30.0) sec Sodium (137-145) mmol/L Potassium (3.5-5.1) mmol/L Chloride (98-107) mmol/L Carbon Dioxide (22-30) mmol/L Anion Gap mmol/L BUN (9-20) mg/dL Creatinine (0.66-1.25) mg/dL Est GFR (MDRD) Af Amer (>60 ml/min/1.73 sqM) Est GFR (MDRD) Non-Af (>60 ml/min/1.73 sqM) Glucose (74-99) mg/dL Calcium (8.4-10.2) mg/dL Total Bilirubin (0.2-1.3) mg/dL AST (17-59) U/L ALT (21-72) U/L Alkaline Phosphatase (38-126) U/L Total Creatine Kinase (55-170) U/L CK-MB (CK-2) (0.0-2.4) ng/mL CK-MB (CK-2) Rel Index Troponin I (0.000-0.034) ng/mL Total Protein (6.3-8.2) g/dL Albumin (3.5-5.0) g/dL Disposition Clinical Impression: Cerebrovascular accident Disposition: ADMITTED IP TO THIS [facility] Referrals: Sung Ludwig MD [Primary Care Provider] - 1-2 days Time of Disposition: 11:05
[2017-04-06 09:32] LABS: ALT 29 U/L (21-72); AST 20 U/L (17-59); Alkaline Phosphatase 89 U/L (38-126); Anion Gap 11 mmol/L; Blood Urea Nitrogen 37 mg/dL (9-20); Calcium 9.8 mg/dL (8.4-10.2); Carbon Dioxide 25 mmol/L (22-30); Chloride 106 mmol/L (98-107); Glucose 267 mg/dL (74-99); Non-African American GFR(MDRD) >60 (>60 ml/min/1.73 sqM); Potassium 4.8 mmol/L (3.5-5.1); Sodium 142 mmol/L (137-145); Total Bilirubin 0.8 mg/dL (0.2-1.3); Total Protein 6.2 g/dL (6.3-8.2)
[2017-04-06 09:33] LABS: INR 1.1 (<1.2); Prothrombin Time 10.6 sec (9.0-12.0)
--- NOTE | 2017-04-06 09:38 | CT ---
EXAMINATION TYPE: CT brain wo con for TPA DATE OF EXAM: 04/06/2017 HISTORY: Lt side weakness CT DLP: 1054.2 mGycm. Automated Exposure Control for Dose Reduction was Utilized. TECHNIQUE: CT scan of the head is performed without contrast. COMPARISON: CT brain March 19, 2017 . FINDINGS: There is hyperdense right MCA sign with alarcon-white matter blurring in right MCA distributio n consistent with long segment acute thrombus and developing MCA distribution acute infarct. New curv ilinear hyperdensity along the inferior right frontal region is suspicious for tiny extra-axial hemor rhage seen best on coronal image 19 but also noted on axial image 22. There is diffuse ventricular an d sulcal prominence consistent with diffuse age-related cerebral atrophy. There is low-attenuation i n the periventricular white matter consistent with chronic small vessel ischemic change. There is hyp erdense right MCA sign. Frothy opacification right sphenoid sinus is redemonstrated. There is new dep endent fluid in the right posterior ethmoid sinuses. Neither lens as well seen similar to prior study . IMPRESSION: 1. Hyperdense MCA sign suggesting complete right middle cerebral artery thrombosis with large evolvin g acute infarct right MCA distribution identified as there is new alarcon-white matter blurring present. Tiny acute hemorrhagic component noted. 2. Background of moderate diffuse cerebral atrophy and chronic small vessel ischemic changes redemons trated. Paranasal sinus disease incidentally noted. Critical results communicated to ordering ER physician via telephone at time of dictation.
[2017-04-06 09:49] LABS: Creatine Kinase <20 U/L (55-170)
[2017-04-06 10:01] LABS: Creatine Kinase MB 1.2 ng/mL (0.0-2.4); Troponin I 0.023 ng/mL (0.000-0.034)
--- NOTE | 2017-04-06 10:10 | XR ---
EXAMINATION TYPE: XR chest 2V DATE OF EXAM: 04/06/2017 COMPARISON: Chest x-ray March 23, 2017 HISTORY: Altered mental status and left-sided weakness. TECHNIQUE: Frontal and lateral views of the chest are obtained. FINDINGS: There is chronic parenchymal change bilaterally without suspicious new focal air space opa city, pleural effusion, or pneumothorax seen. The cardiac silhouette size is enlarged with dual lead pacemaker and atherosclerotic thoracic aorta redemonstrated. The osseous structures are deminerali zed. IMPRESSION: Chronic changes and cardiomegaly without acute pulmonary process.
[2017-04-06 10:19] LABS: Partial Thromboplastin Time 20.8 sec (22.0-30.0)
[2017-04-06 11:55] LABS: Glucose,Whole Blood 261 mg/dL (75-99)
--- NOTE | 2017-04-06 12:15 | P.HPIM ---
History of Present Illness 86-year-old male with brought the emergency room with complaints of stroke like symptoms unable to move his left side patient is not verbal either deviated to the right. After discussion with the families determine the patients to be comfort care. No CPR no ventilator and a feeding tube Review of Systems ROS unobtainable: due to mental status Past Medical History Past Medical History: Cancer, Diabetes Mellitus, GERD/Reflux, Hyperlipidemia, Skin Disorder Additional Past Medical History / Comment(s): see Dr rBandt H&P, constipation, hx skin cancer, inner ear problem-occ lighthead, right eye blind History of Any Multi-Drug Resistant Organisms: None Reported Past Surgical History: Heart Catheterization, Pacemaker, Prostate Surgery Additional Past Surgical History / Comment(s): surgery for detached retina-rt eye, Past Anesthesia/Blood Transfusion Reactions: Motion Sickness Type of Cardiac Device: Permanent Pacemaker Device Placement Date:: about 2007 Smoking Status: Former smoker - Past Family History Sister(s) Family Medical History: Cancer Medications and Allergies Home Medications Medication Instructions Recorded Confirmed Type Aspirin [Adult Low Dose Aspirin EC] 81 mg PO HS 08/20/15 04/06/17 History Docusate [Colace] 100 mg PO TID PRN 08/20/15 04/06/17 History Glimepiride [Amaryl] 2 mg PO BID 08/20/15 04/06/17 History Imipramine Pamoate [Tofranil Pm] 75 mg PO HS 08/20/15 04/06/17 History Vits A,C,E/Lutein/Minerals 1 tab PO DAILY 08/20/15 03/19/17 History [Ocuvite with Lutein Tablet] Cholecalciferol (Vitamin D3) 2,000 unit PO DAILY 03/19/17 03/19/17 History [Vitamin D3] Empagliflozin [Jardiance] 10 mg PO DAILY 03/19/17 04/06/17 History Multivitamins, Thera [Multivitamin 1 tab PO DAILY 03/19/17 03/19/17 History (formulary)] Glucerna Shake 1 can PO BID-W/MEALS 04/06/17 04/06/17 History Metoprolol Tartrate [Lopressor] 100 mg PO BID 04/06/17 04/06/17 History Pantoprazole Sodium [Protonix] 40 mg PO DAILY 04/06/17 04/06/17 History Ramipril [Altace] 5 mg PO BID 04/06/17 04/06/17 History metFORMIN HCL [Glucophage] 500 mg PO BID 04/06/17 04/06/17 History Allergies Allergy/AdvReac Type Severity Reaction Status Date / Time No Known Allergies Allergy Verified 04/06/17 09:39 Physical Exam Vitals: Vital Signs Temp Pulse Pulse Resp BP BP Pulse Ox 04/06/17 11:16 109 H 135/83 04/06/17 10:05 102 H 141/76 04/06/17 09:35 104 H 114/58 99 04/06/17 09:20 114 H 113/78 98 04/06/17 08:59 97.9 F 119 H 17 119/72 93 L Intake and Output 04/05/17 04/06/17 04/06/17 22:59 06:59 14:59 Other: Weight 48.988 kg Patient Weight 04/07/17 06:59 Weight 48.988 kg - Constitutional General appearance: thin - EENT eye gaze to right Ears: bilateral: normal - Respiratory Respiratory: bilateral: CTA - Cardiovascular Rhythm: regularly irregular - Gastrointestinal General gastrointestinal: soft - Integumentary Integumentary: normal - Neurologic Neurologic: focal deficits - Musculoskeletal Musculoskeletal: left sided weakness - Psychiatric patient is not verbal Results CBC & Chem 7: 04/06/17 09:04 04/06/17 09:04 Labs: Abnormal Lab Results - Last 24 Hours (Table) 04/06/17 04/06/17 04/06/17 Range/Units 09:04 09:04 09:04 WBC 13.2 H (3.8-10.6) k/uL Neutrophils # 10.3 H (1.3-7.7) k/uL APTT (22.0-30.0) sec BUN 37 H (9-20) mg/dL Glucose 267 H (74-99) mg/dL POC Glucose (mg/dL) (75-99) mg/dL Total Creatine Kinase <20 L (55-170) U/L Total Protein 6.2 L (6.3-8.2) g/dL Albumin 3.1 L (3.5-5.0) g/dL 04/06/17 04/06/17 Range/Units 09:04 11:52 WBC (3.8-10.6) k/uL Neutrophils # (1.3-7.7) k/uL APTT 20.8 L (22.0-30.0) sec BUN (9-20) mg/dL Glucose (74-99) mg/dL POC Glucose (mg/dL) 261 H (75-99) mg/dL Total Creatine Kinase (55-170) U/L Total Protein (6.3-8.2) g/dL Albumin (3.5-5.0) g/dL Chest x-ray: report reviewed CT Scan - head: report reviewed Assessment and Plan Plan: Assessment CVA with left-sided weakness history pacemaker history of prostrate surgery diabetes type II GERD hyperlipidemia Plan comfort care neurology consult no CPR no ventilator no feeding tube
[2017-04-06] MEDS: INSULIN LISPRO (humaLOG) 300 UNIT/3 ML VIAL SQ SCH ×3 (13:16→21:16)
[2017-04-06 14:36] LABS: Hemoglobin A1C 9.4 % (4.2-6.1)
--- NOTE | 2017-04-06 15:07 | US ---
EXAMINATION TYPE: US carotid duplex BILAT DATE OF EXAM: 04/06/2017 COMPARISON: CT brain same day CLINICAL HISTORY: Stenosis. Possible CVA, left sided weakness EXAM MEASUREMENTS: RIGHT: Peak Systolic Velocity (PSV) cm/sec ----- Right CCA: 47.0 ----- Right ICA: 34.8 ----- Right ECA: 86.6 ICA/CCA ratio: 0.7 RIGHT: End Diastole cm/sec ----- Right CCA: 0.0 ----- Right ICA: 0.0 ----- Right ECA: 7.6 LEFT: Peak Systolic Velocity (PSV) cm/sec ----- Left CCA: 88.6 ----- Left ICA: 94.4 ----- Left ECA: 82.7 ICA/CCA ratio: 1.1 LEFT: End Diastole cm/sec ----- Left CCA: 18.8 ----- Left ICA: 26.0 ----- Left ECA: 0.0 VERTEBRALS (direction of flow): Right Vertebral: Antegrade Left Vertebral: Antegrade Triphasic waveforms noted within the right common carotid artery, right carotid bulb and proximal int ernal carotid artery, there is a lack of diastolic flow flow. Severe plaque noted right bifurcation. Diminished velocities right ICA. Moderate plaque left bifurcation. IMPRESSION: Findings within the right carotid system may be indicative downstream obstruction as not ed on patient's CT scan same date. Consider MRI brain, MRA ak chin of Gomes, CTA brain
[2017-04-06 17:05] LABS: Glucose,Whole Blood 167 mg/dL (75-99)
[2017-04-06] MEDS: SODIUM CHLORIDE 0.9% 1,000 ML IV SCH (20:39)
[2017-04-06 21:03] LABS: Glucose,Whole Blood 106 mg/dL (75-99)
[2017-04-06] MEDS: SCOPOLAMINE 1.5MG/72HR PATCH TRANSDERM SCH (21:19)
[2017-04-07 05:17] LABS: Cholesterol 158 mg/dL (<200); HDL Cholesterol 47 mg/dL (40-60)
[2017-04-07 06:02] LABS: Glucose,Whole Blood 146 mg/dL (75-99)
[2017-04-07] MEDS: INSULIN LISPRO (humaLOG) 300 UNIT/3 ML VIAL SQ SCH ×4 (06:38→20:41)
[2017-04-07] MEDS: ASPIRIN 300 MG SUPP RECTAL SCH (09:01)
[2017-04-07] MEDS: SODIUM CHLORIDE 0.9% 1,000 ML IV SCH ×2 (09:01→20:49)
--- NOTE | 2017-04-07 10:47 | CONS ---
DATE OF CONSULTATION: 04/06/2017 CHIEF COMPLAINT: Stroke. HISTORY OF PRESENT ILLNESS: Mr. Multani is an 86-year-old male who is being evaluated on 04/06/2017 by the Neurology Service per the request of Dr. Sung Ludwig for a stroke. The patient resides at a [facility]pc and when he was taken out of his bed to be seated in his bedside chair to have breakfast. He had a sudden onset of altered mental status and his speech became quite slurred. It was noticed that he was having left-sided weakness. He was transferred to [facility] Emergency Room for further work-up. In the emergency room, he was found to have flaccid paralysis on the left side and he was having difficulty speaking. A Stat CT scan of the brain was done which showed a large evolving right middle cerebral artery distribution, stroke with an obvious hyperdense right MCA sign. A small hemorrhagic component was seen as well. His carotid Doppler showed evidence of downstream obstruction involving the right internal carotid artery system. His CBC showed mild leukocytosis at 13.2. His comprehensive metabolic profile was normal except for slightly elevated BUN at 37.2 and glucose at 267. At the time of my evaluation, the patient is lying in his bed. He continues to be having flaccid left hemiparesis and significant dysarthria. He is also having significant dysphagia. There is no previous history of stroke. At home, he was on aspirin 81 mg daily. PAST MEDICAL HISTORY: Diabetes, dyslipidemia, gastroesophageal reflux disease, history of skin cancer, atrial fibrillation, history of pacemaker placement, history of prostate surgery. SOCIAL HISTORY: The patient is a former smoker. There is no history of any alcohol or drug use. FAMILY HISTORY: Positive for cancer. REVIEW OF SYSTEMS: Unable to obtain due to patient's dysarthria severity. Home medications reviewed in the chart. ALLERGIES: No known drug allergies. PHYSICAL EXAM: Vital signs show a temperature of 97.9, pulse 105, respiration 20, blood pressure 124/67. GENERAL APPEARANCE: The patient is a thin, elderly male who appears to be in no acute distress. HEENT: Normocephalic, atraumatic, significant left facial weakness is seen. Neck is supple with no masses felt. CARDIOVASCULAR: Regular rate and rhythm. ABDOMEN: Nontender, nondistended. Extremities showed no edema or clubbing. Neurological exam: The patient is awake but appears to be drowsy. He is oriented to person only. Speech is quite dysarthric and difficult to comprehend. He does follow simple commands appropriately. Strength appears to be 0/5 on the left and 4/5 on the right. Sensory examination was difficult to perform. No tremors or seizure-like activity is seen. Cranial nerve testing showed left gaze palsy, chronic right eye visual loss and left facial weakness. IMPRESSION: 1. Acute ischemic stroke, right middle cerebral artery distribution. 2. Left hemiplegia. 3. Dysarthria. 4. Dysphagia. 5. Hypertension. RECOMMENDATION: The patient does appear to have suffered a large acute ischemic stroke involving the right middle cerebral artery distribution. He continues to have left hemiplegia, dysarthria and dysphagia. I had a lengthy discussion with the patient's family regarding the prognosis. Given the patient 's age and size of the stroke, and given the severity of his presenting symptoms , the change of meaningful neurological recovery on the left side is slim. The family was adamant that the patient did not want any PEG tube placement. Speech Therapy is following the patient. The family was told that if he is unable to swallow and a PEG tube is not placed, the patient will not survive. They do understand this and will make further family decisions in the next 24 to 48 hours. I will restart his IV hydration with normal saline. I will start him on aspirin 300 mg rectally daily. Physical Therapy and Speech Therapy have been consulted. Continue neuro checks. I will continue to follow with you. Further recommendations to follow. Thank you, Dr. Ludwig for allowing me to participate in the care of your patient. If you have any questions, please feel free to contact me. MATT
--- NOTE | 2017-04-07 11:06 | P.PN ---
Subjective 86-year-old male remains nonresponsive to verbal communication. Left-sided flaccid. Patient was evaluated by neurologist and found to have acute ischemic stroke right cerebral artery distribution. Family discussing whether they want to have a feeding tube. Patient is on comfort care only right now Objective - Vital Signs Vital signs: Vital Signs Temp 97.6 F 04/07/17 08:00 Pulse 108 H 04/07/17 08:00 Resp 20 04/07/17 08:00 BP 125/80 04/07/17 08:00 Pulse Ox 96 04/07/17 08:00 Intake & Output 04/06/17 04/07/17 04/07/17 18:59 06:59 18:59 Intake Total 1000 825 Balance 1000 825 Weight 48.988 kg 44.5 kg Intake: IV 1000 600 Sodium Chloride 0.9% 1, 1000 600 000 ml @ 999 mls/hr IV . Q1H1M [facility] Rx#:[id number] Intake, IV Titration 225 Amount Sodium Chloride 0.9% 1, 225 000 ml @ 75 mls/hr IV . [id number] Rx#:[id number] Other: # Voids 1 - Constitutional General appearance: Present: thin - EENT EENT Comment(s): Right gaze Ears: bilateral: normal - Neck Neck: Present: rigidity - Respiratory Respiratory: bilateral: CTA - Cardiovascular Rhythm: regular - Gastrointestinal General gastrointestinal: Present: soft - Integumentary Integumentary: Present: normal - Neurologic Neurologic: Present: focal deficits - Musculoskeletal Musculoskeletal: Present: left sided weakness - Psychiatric Psychiatric Comment(s): Patient nonverbal. Eyes open with deep stimulation. Positive Babinski left leg and left arm flaccid - Labs CBC & Chem 7: 04/06/17 09:04 04/06/17 09:04 Labs: Abnormal Lab Results - Last 24 Hours (Table) 04/06/17 04/06/17 04/06/17 Range/Units 09:04 11:52 16:37 POC Glucose (mg/dL) 261 H 167 H (75-99) mg/dL Hemoglobin A1c 9.4 H (4.2-6.1) % 04/06/17 04/07/17 Range/Units 21:01 06:01 POC Glucose (mg/dL) 106 H 146 H (75-99) mg/dL Hemoglobin A1c (4.2-6.1) % - Imaging and Cardiology CT Scan - head: report reviewed Assessment and Plan Plan: Assessment Acute ischemic stroke with right cerebral artery distribution History of hypertension Dysphasia Dysarthria Left hemiplegia History of pacemaker History of prostate surgery Diabetes type 2 GERD Hyperlipidemia Plan Continue consultation with neurology Family and discussion on of level of comfort care discussing PEG tube placement
[2017-04-07 11:11] VITALS: BMI 16.8
[2017-04-07 11:23] LABS: Glucose,Whole Blood 107 mg/dL (75-99)
--- NOTE | 2017-04-07 12:12 | CDI ---
In responding to this query, please exercise your independent professional judgment. The [facility] Coding Staff and Clinical Documentation Specialists appreciate your assistance in clarifying documentation, maintaining compliance with coding guidelines, accurately documenting patients condition and capturing severity of illness. The fact that a question is asked does not imply that any particular answer is desired or expected. Communication forms are a method of clarifying documentation and are not made part of the Legal Health Record. Thank you in advance for your clarification. Last Revision, November 2015 Rubina Hagan [address] [place] [address] Documentation Clarification Form Date: 04/07/2017 11:44:00 AM From: Rissa Brower RN, CCDS Admit Date: 04/06/2017 11:11:00 AM Patient Name: Hermilo Multani Visit Number: [id number] Discharge Date: Dr. Du Yuan Acute ischemic stroke, right middle cerebral artery distribution is documented as a diagnosis in your consult on 04/07/17. CT: Hypodence MCA sign suggesting complete right middle cerebral artery thrombosis with large evolving acute infarct right MCA distribution identified as there is new alarcon-white matter blurring present. Tiny acute hemorrhagic component noted. Carotid Doppler: Findings within the right carotid system may be indicative downstream obstruction. History: Diabetes type 2, Cancer, former smoker Clinical Indicators: Present with left side completely flaccid with eyes deviated to the right. Vital Sign: 119/72 119 17 97.993 % EKG: ventricular paced rhythm@ 115 Treatment: Neurovascular assessment per orders Physical Therapy and Speech Therapy consult IV Fluids In your professional opinion, please further clarify the following: Cause of Stroke/CVA: Stenosis/Occlusion Embolic Thrombolytic Hemorrhagic (Specify Intracerebral or intracranial) Hypertension Other (please specify) Unable to Determine Please document in your progress notes in order to capture severity of illness and risk of mortality. Include clinical findings that support your diagnosis. FYI: Press F11 to launch patient chart MTDD
--- NOTE | 2017-04-07 16:02 | P.PN ---
Subjective Principal diagnosis: Stroke This is an 86-year-old male continuing be evaluated by the neurology service for stroke. He resides in a care home where he had a sudden onset of altered mental status and slurred speech. He started having left-sided weakness and was transferred to the [facility] emergency room. He continues to have flaccid paralysis of the left side. CT of the brain showed large evolving right middle cerebral artery distribution stroke. There was a hyperdense right MCA sign which is consistent with thrombus. Carotid Doppler showed evidence of downstream obstruction involving the right internal carotid artery system. He is currently in a DO NOT RESUSCITATE status. At this point the option of a PEG tube has been decline. At the time my evaluation he is lying comfortably in bed with flaccid left-sided hemiparesis. Objective - Vital Signs Vital signs: Vital Signs Temp 97.6 F 04/07/17 15:40 Pulse 109 H 04/07/17 15:40 Resp 20 04/07/17 15:40 BP 124/69 04/07/17 15:40 Pulse Ox 97 04/07/17 15:40 Intake & Output 04/06/17 04/07/17 04/07/17 18:59 06:59 18:59 Intake Total 1000 825 900 Balance 1000 825 900 Weight 48.988 kg 44.5 kg 44.5 kg Intake: IV 1000 600 Sodium Chloride 0.9% 1, 1000 600 000 ml @ 999 mls/hr IV . Q1H1M [facility] Rx#:[id number] Intake, IV Titration 225 900 Amount Sodium Chloride 0.9% 1, 225 900 000 ml @ 75 mls/hr IV . [id number] [facility] Rx#:[id number] Other: # Voids 1 2 - Constitutional General appearance: Present: no acute distress - EENT Eyes: Present: abnormal pupil, ptosis - Neck Neck: Absent: rigidity - Respiratory Respiratory: negative: prolonged expiration, prolonged inspiration - Cardiovascular Rhythm: regular - Gastrointestinal General gastrointestinal: Present: soft. Absent: distended, tenderness - Neurologic Neurologic Comment(s): The patient is sleeping but able to be awoken. At this time my exam he is nonverbal. He did respond to simple command of hand squeeze, but no other commands followed. He does have spontaneous movement of his right upper and lower extremity. There is left facial droop and left-sided flaccid paralysis. He does respond to painful stimuli of the left upper and lower extremity to a small extent. No tremors or seizure-like activities are seen. For members of the family are present at the time of my exam and indicate that they would likely request comfort care only. - Labs CBC & Chem 7: 04/06/17 09:04 04/06/17 09:04 Labs: Abnormal Lab Results - Last 24 Hours (Table) 04/06/17 04/06/17 04/07/17 Range/Units 16:37 21:01 06:01 POC Glucose (mg/dL) 167 H 106 H 146 H (75-99) mg/dL 04/07/17 Range/Units 11:20 POC Glucose (mg/dL) 107 H (75-99) mg/dL Assessment and Plan (1) Left hemiparesis Status: Acute (2) Dysphagia Status: Acute (3) Dysarthria Status: Acute (4) Thrombotic stroke involving cerebellar artery Status: Acute (5) Cerebrovascular accident Status: Acute Plan: The patient does appear to have suffered a large acute thrombotic stroke of the right middle cerebral artery. There is no improvement of his status. At this point it sounds like the family is choosing comfort care. Therefore, we will follow on an as-needed basis if any further neurological input is needed. I have performed a history and physical on the above patient. I have reviewed the above note, and agree.
[2017-04-07 16:17] LABS: Glucose,Whole Blood 127 mg/dL (75-99)
[2017-04-07 20:39] LABS: Glucose,Whole Blood 128 mg/dL (75-99)
[2017-04-08 06:04] LABS: Glucose,Whole Blood 178 mg/dL (75-99)
[2017-04-08] MEDS: INSULIN LISPRO (humaLOG) 300 UNIT/3 ML VIAL SQ SCH ×4 (06:35→23:05)
[2017-04-08] MEDS: ASPIRIN 300 MG SUPP RECTAL SCH (09:23)
[2017-04-08] MEDS: SODIUM CHLORIDE 0.9% 1,000 ML IV SCH (11:41)
[2017-04-08 11:45] LABS: Glucose,Whole Blood 111 mg/dL (75-99)
--- NOTE | 2017-04-08 12:41 | P.DS ---
Providers Date of admission: 04/06/17 11:11 Expected date of discharge: 04/08/17 Attending physician: Sung Ludwig Consults: 04/06/17 11:10 Consult Physician Routine Consulting Provider: Du Yuan Consult Reason/Comments: CVA Do you want consulting provider notified?: Yes Primary care physician: Sung Ludwig Hospital Course: 86-year-old male was admitted to through the emergency room with complaints of left sided weakness. Patient was evaluated by neurologist. The family decision made to transfer patient to hospice Assessment CVA acute ischemic right cerebral artery disruption history hypertension dysarthria dysphasia history pacemaker diabetes type II GERD hyperlipidemia Plan transferred hospice Patient Condition at Discharge: Poor Plan - Discharge Summary New Discharge Prescriptions: New Aspirin 300 mg RECTAL DAILY suppositor Scopolamine 1.5MG/72Hr Patch [TransDerm Scop] 1 patch TRANSDERM Q72H patch Discontinued Glimepiride [Amaryl] 2 mg PO BID Docusate [Colace] 100 mg PO TID PRN PRN Reason: Constipation Imipramine Pamoate [Tofranil Pm] 75 mg PO HS Aspirin [Adult Low Dose Aspirin EC] 81 mg PO HS Vits A,C,E/Lutein/Minerals [Ocuvite with Lutein Tablet] 1 tab PO DAILY Multivitamins, Thera [Multivitamin (formulary)] 1 tab PO DAILY Cholecalciferol (Vitamin D3) [Vitamin D3] 2,000 unit PO DAILY Empagliflozin [Jardiance] 10 mg PO DAILY Furosemide [Lasix] 20 mg PO BID@0900,1600 tab Sodium Chloride Tab 1 gm PO BID tab INSULIN LISPRO (HumaLOG) [humaLOG] 0 unit SQ ACHS #1 vial Glucerna Shake 1 can PO BID-W/MEALS metFORMIN HCL [Glucophage] 500 mg PO BID Metoprolol Tartrate [Lopressor] 100 mg PO BID Pantoprazole Sodium [Protonix] 40 mg PO DAILY Ramipril [Altace] 5 mg PO BID Discharge Medication List Aspirin 300 mg RECTAL DAILY suppositor 04/08/17 [Rx] Scopolamine 1.5MG/72Hr Patch [TransDerm Scop] 1 patch TRANSDERM Q72H patch 11/20 [Rx] Follow up Appointment(s)/Referral(s): Sung Ludwig MD [Primary Care Provider] - 1-2 days Discharge Disposition: DISCH TO HOSPICE MED FACILTY
[2017-04-09] MEDS: SODIUM CHLORIDE 0.9% 1,000 ML IV SCH ×2 (03:26→15:55)
[2017-04-09] MEDS: INSULIN LISPRO (humaLOG) 300 UNIT/3 ML VIAL SQ SCH ×4 (07:11→21:30)
[2017-04-09] MEDS: ASPIRIN 300 MG SUPP RECTAL SCH (08:34)
[2017-04-09 21:11] LABS: Glucose,Whole Blood 208 mg/dL (75-99)
[2017-04-09] MEDS: SCOPOLAMINE 1.5MG/72HR PATCH TRANSDERM SCH (21:28)
[2017-04-09 21:49] VITALS: BP 135/63; PULSE 36; RESP 16; TEMP 97.8
--- NOTE | 2017-04-10 11:15 | PN ---
DATE OF SERVICE: 04/09/17 I am covering for Dr. Ludwig. This 86-year-old gentleman who was admitted with left sided weakness, also had right sided stroke. The patient has hypertension. The family and the patient is pursuing hospice options at this time. The patient is sedated. On exam, pulse 72, blood pressure 170/59. Respiratory rate 20. Temperature 98.4 degrees. Pulse ox 97% on room air. HEENT: Conjunctivae normal. Oral mucosa moist. NECK: no JVD. CARDIOVASCULAR: S1, S2 muffled. RESPIRATORY: Breath sounds diminished at the bases. Scattered rhonchi and no crackles. Abdomen is soft. LEGS: No edema. No swelling. Nervous system : noted LABS: WBC 13.2, glucose noted. ASSESSMENT: 1. Acute left leg weakness caused by right sided cerebral artery cerebrovascular incident. 2. Hypertension. 3. History of dysarthria. 4. Dysphasia. 5. History of pacemaker. 6. Diabetes mellitus, type 2. 7. Gastroesophageal reflux disease. 8. Hyperlipidemia. 9. Hospice. RECOMMENDATIONS AND DISCUSSION: Continue the current medications. Continue with monitoring and symptomatic treatment. Closely follow with discharge planning team about the bed situation with Hospice. Otherwise, prognosis guarded. Further recommendations to follow. Discussed with the family. MATT
== END 2017-04-09 23:53 | disposition hospice, inpatient (51) | DRG 65 ==
LOC: EC 08:58 → 6SEL 11:11 → 5ONC 04-08 16:19
PROVIDERS: ADMIT Family Medicine; ATTEND Family Medicine
DX: I63.311 Cerebral infarction due to thrombosis of right middle cerebral artery (principal); G81.94 Hemiplegia, unspecified affecting left nondominant side; I48.91 Unspecified atrial fibrillation; E11.9 Type 2 diabetes mellitus without complications; D72.829 Elevated white blood cell count, unspecified; I10 Essential (primary) hypertension; E78.5 Hyperlipidemia, unspecified; H54.41 Blindness, right eye, normal vision left eye; K21.9 Gastro-esophageal reflux disease without esophagitis; R13.10 Dysphagia, unspecified; R47.02 Dysphasia; Z51.5 Encounter for palliative care; Z66 Do not resuscitate; Z79.82 Long term (current) use of aspirin; Z79.899 Other long term (current) drug therapy; Z85.828 Personal history of other malignant neoplasm of skin; Z87.891 Personal history of nicotine dependence; Z95.0 Presence of cardiac pacemaker
CPT/HCPCS: 36415; 70450; 71020; 80053; 80061; 82550; 82553; 83036; 84484; 85025; 85610; 85730; 93005; 93880; 96360; 99285

== ENCOUNTER 2017-04-10 00:04 | Inpatient (IN) | payer OTHER ==
[2017-04-10 23:27] VITALS: BP 137/63; TEMP 98.2
[2017-04-11 07:32] VITALS: PULSE 36; RESP 20
--- NOTE | 2017-04-11 10:16 | PN ---
DATE OF SERVICE: 04/10/2017 This 86-year-old gentleman was admitted with acute CVA, on hospital care. No chest pain, no palpitation, no fever. On exam, the patient is sedated. The pulse is 41. HEENT: Conjunctivae normal. NECK: No JVD. CARDIOVASCULAR: S1/S2. RESPIRATORY: Diminished breath sounds especially in the bases. Scattered rhonchi. ABDOMEN: Soft. NERVOUS SYSTEM: Could not be examined. LABS: Reviewed.. ASSESSMENT: 1. Acute left-sided weakness caused by right-sided cerebrovascular accident. 2. Hypertension. 3. History of dysarthria. 4. History of dysphagia. 5. History of pacemaker. 6. Diabetes mellitus type 2. 7. Gastroesophageal reflux disease. 8. Hyperlipidemia. 9. Hospice. RECOMMENDATIONS AND DISCUSSION: Recommend to continue current medication, continue to monitor, continue symptomatic treatment. Closely monitor. Further recommendations to follow. Continue the morphine drip. MTDD
--- NOTE | 2017-04-12 12:29 | PN ---
DATE OF SERVICE: 04/11/2017 This 86-year-old gentleman was admitted with acute CVA, is on hospice care. The patient is being sedated at this time. The patient is on morphine drip. On exam, vital signs are noted. HEENT: Conjunctivae normal. NECK: No JVD. HEART: S1/S2. RESPIRATORY: Diminished breath sounds especially at the bases. ABDOMEN: Soft. NEURO: Unchanged. Labs are noted. ASSESSMENT: 1. Acute left-sided weakness caused by right-sided cerebrovascular accident. 2. Hypertension. 3. History of dysarthria. 4. Dysphagia. 5. Pacemaker. 6. Diabetes mellitus type 2. 7. Gastroesophageal reflux disease. RECOMMENDATION AND DISCUSSION: Recommend to continue current medication, continue to monitor, continue symptomatic treatment. Continue with hospice care. Further recommendations to follow.. MTDD
[2017-04-12] MEDS ORDERED: SCOPOLAMINE 1.5MG/72HR PATCH TRANSDERM SCH (21:00)
--- NOTE | 2017-05-17 07:41 | DS ---
DISCHARGE SUMMARY PRELIMINARY CAUSE OF : Left-sided weakness caused by right-sided cerebrovascular accident and acute stroke. OTHER DIAGNOSES: 1. Hypertension. 2. History of dysarthria. 3. Dysphagia. 4. Pacemaker. 5. Diabetes type 2. 6. Gastroesophageal reflux disease. HISTORY: This 86-year-old gentleman with a past medical history of multiple medical problems as mentioned earlier being followed by Dr. Sung Ludwig in the outpatient setting admitted with acute left-sided weakness and caused by possible right-sided CVA. The patient is asymptomatic however the care was discussed with the family and family would like to go with hospice care. Hospice care was continued. The patient succumbed to his illness and medic above-mentioned medical illness. The prognosis remained guarded throughout hospitalization. Please refer to the multiple diagnostic and multiple progress notes for further information. MMODL / IJN: [id number] /
== END 2017-04-11 20:59 | disposition hospice, inpatient (51) | DRG 65 ==
LOC: 5ONC 00:04
PROVIDERS: ADMIT Family Medicine; ATTEND Family Medicine
DX: I63.9 Cerebral infarction, unspecified (principal); G81.94 Hemiplegia, unspecified affecting left nondominant side; E11.9 Type 2 diabetes mellitus without complications; R47.1 Dysarthria and anarthria; R13.10 Dysphagia, unspecified; E78.5 Hyperlipidemia, unspecified; I10 Essential (primary) hypertension; K21.9 Gastro-esophageal reflux disease without esophagitis; H54.41 Blindness, right eye, normal vision left eye; Z51.5 Encounter for palliative care; Z95.0 Presence of cardiac pacemaker; Z85.828 Personal history of other malignant neoplasm of skin; Z87.891 Personal history of nicotine dependence; Z79.82 Long term (current) use of aspirin; Z79.84 Long term (current) use of oral hypoglycemic drugs; Z79.899 Other long term (current) drug therapy